=== PATIENT | female | born 1940 | race Caucasian/White ===

== ENCOUNTER 2022-04-14 18:57 | Observation (INO) | payer MEDICARE, SELFPAY ==
[2022-04-14 19:00] VITALS: BP 165/81; PULSE 67; RESP 16; TEMP 36.2; O2SAT 97
--- NOTE | 2022-04-14 19:07 | CTR_ITS ---
PROCEDURE INFORMATION: Exam: CT Head Without Contrast Exam date and time: 04/14/2022 7:20 PM Age: 81 years old Clinical indication: Weakness, extremity; Right; Additional info: Strokelike symptoms TECHNIQUE: Imaging protocol: Computed tomography of the head without contrast. Radiation optimization: All CT scans at this facility use at least one of these dose optimization techniques: automated exposure control; mA and/or kV adjustment per patient size (includes targeted exams where dose is matched to clinical indication); or iterative reconstruction. COMPARISON: CT cervical spin wo con* [id number] 04/17/2018 7:24 PM RADIATION DOSE METRICS: Total DLP (mGy-cm): 1096.78 FINDINGS: Brain: There is moderate cerebral atrophy. There is mild diffuse heterogeneity of the white matter attenuation, consistent with chronic white matter ischemic changes. Localized area of low attenuation gliosis in the left posterior periventricular white matter. Age indeterminate lacunar infarct of the right basal ganglia suspected. Negative for intracranial hemorrhage. No space-occupying intracranial mass. No mass effect on the brain. Negative for midline shift of the brain. Cerebral ventricles: No ventriculomegaly. Paranasal sinuses: Visualized sinuses are unremarkable. No fluid levels. Mastoid air cells: Visualized mastoid air cells are well aerated. Bones/joints: Unremarkable. No acute fracture. Soft tissues: Unremarkable. CT/CT head wo con* [id number] IMPRESSION: 1. Negative for intracranial hemorrhage. 2. Age indeterminate right basal ganglia lacunar infarct with no comparison imaging available.
--- NOTE | 2022-04-14 19:15 | ED_ITS ---
HPI - Neuro Symptoms/Deficit General: Chief Complaint: Neuro Symptoms/Deficit Stated Complaint: stroke like symptoms Time Seen by Provider: 04/14/22 19:15 History of Present Illness: Ms. Patel is a 81-year-old lady with history of hypertension, CAD with history of PCI, COPD with continued tobacco use who presents to the emergency department for strokelike symptoms. Onset of symptoms was sudden at rest when she was sitting watching TV. Her daughter noticed that she dropped to the cigarette out of her right hand and when she reached down to pick it up was unable to stand back up. She had associated facial droop and dysarthria with alteration in mental status. She had symptoms for 5 to 10 minutes which have now completely resolved. She reports generalized malaise however this has been chronic of late. She did have 1 episode similar approximately 5 or 6 months ago and an episode where she woke up and part of her body was paralyzed that this resolved approximately 1 year ago. She did not seek medical attention for either 1 of those events. Intensity of symptoms when present was severe. Course has improved. No other specific changes in health, exacerbating, or alleviating factors identified. Onset (ago): minute(s) Timing confirmed by: family member Location: speech, right face and right arm History of same: Yes Severity: moderate Relieving factors: time Exacerbating factors: none Context: sudden onset On Anticoagulants: No Associated symptoms: Reports no associated symptoms Review of Systems General: Reports: 10 or more systems reviewed and unremarkable except in HPI and below PFSH ED PFSH: Medical History (Updated 04/16/22 @ 00:02 by ) CAD (coronary artery disease) COPD (chronic obstructive pulmonary disease) Hypertension Surgical History (Updated 04/14/22 @ 19:44 by Harrison Castro MD) History of coronary artery stent placement Family History (Updated 04/15/22 @ 00:56 by Fredi Dewitt MD) Mother Chronic kidney disease (CKD) Father Congestive heart failure Social History (Updated 04/14/22 @ 19:44 by Harrison Castro MD) Smoking and tobacco status: current every day smoker Physical Exam Const: COMMON NORMALS: patient oriented x3 and alert GENERAL APPEARANCE: cooperative and well developed HENMT: COMMON NORMALS: normocephalic and atraumatic HEAD & SCALP: normocephalic and atraumatic THROAT: posterior oropharynx normal Eye: COMMON NORMALS: conjunctivae normal CONJUNCTIVA: Yes conjunctivae normal SCLERA: sclerae normal Neck/C-Spine: COMMON NORMALS: supple GENERAL: Yes trachea midline Resp: EFFORT & INSPECTION: Yes able to speak in complete sentences AUSCULTATION: diminished lung sounds Cardio: COMMON NORMALS: regular rate and regular rhythm RATE: regular rate RHYTHM: regular rhythm GI: COMMON NORMALS: Soft to palpation PALPATION: Yes Soft to palpation and No Tenderness to palpation present (GI) PERCUSSION: normal to percussion Extremity: GENERAL: Yes normal exam except as noted and Yes edema (1+) Neuro: COMMON NORMALS: patient oriented x3, CN's II-XII intact bilaterally, moves all extremities, no focal motor deficits and no sensory deficits noted SENSORIUM/ORIENTATION: Yes alert and No Orientation impaired Psych: COMMON NORMALS: mental status grossly normal and Normal thought process present THOUGHT PROCESS: Normal thought process present Course ED course: - Patient was seen and evaluated by me at bedside - Patient placed on cardiac monitors, IV access obtained - Initial evaluation notable for exam as above. NIHSS 0 - Labs and xrays personally interpreted by me EKG shows sinus rhythm with nonspecific ST segment abnormalities, no STEMI - Labs notable for no significant hematologic or metabolic abnormality to explain symptoms. No evidence of UTI. - Imaging notable for no acute intracranial hemorrhage or mass. Chest x-ray wit hout lobar consolidation or pneumothorax. - Upon serial reexamination after treatment the patient was similar - Based on patient history, evaluation, and testing as interpreted the most likely cause of the patient's condition is TIA with high risk features - The results of ED evaluation were discussed with the patient including plan for admission due to requirement for level of care not available if discharged to prevent significant worsening/deterioration. - Admitting service was contacted and Dr Dewitt with the hospitalist service agreed to admit the patient - Patient was admitted without further deterioration or significant events. Note: Click bubbles or prepopulated silverman in note writing are used for assistance with data collection and billing and are inherently more limited than narrative and other text portions of this note. Please use narrative for additional clinical history and defer to narrative/free test for any case of contradictory information. If information appears in only free text or click bubble it should be considered present or absent as reported. Please contact note selling underwriter for clarifications of clinical information or contradictory information. MDM is a brief summary, contradictory or erroneous seeming information should be clarified and full note should be reviewed. Vital Signs: Vital signs: Vital Signs Temperature 97.3 F L 04/15/22 14:35 Pulse Rate 62 04/15/22 14:35 Respiratory Rate 17 04/15/22 14:35 Blood Pressure 189/74 04/15/22 14:35 Pulse Oximetry 95 04/15/22 14:35 Oxygen Delivery Me thod 04/15/22 12:00 MDM - Neuro Symptoms/Deficit Medical Decision Making 81-year-old lady presenting with neurologic symptoms concerning that have resolved. No clear etiology identified on ED evaluation. Patient is not low risk and requires further inpatient evaluation. No recurrence of symptoms while in the emergency department. Admitted for further management. Medical Records I reviewed the patient's medical records. Lab Data I reviewed the patient's lab results. : 04/14/22 20:07 04/14/22 20:[address] 04/14/22 19:07 IMPRESSION: 1. Negative for intracranial hemorrhage. 2. Age indeterminate right basal ganglia lacunar infarct with no comparison imaging available. Chest X-Ray 04/14/22 19:40 IMPRESSION: No focal acute pulmonary disease. No significant changes from remote comparison. Head MRI 04/15/22 00:47 IMPRESSION: 1. 3 small foci of partially restricted diffusion RIGHT superior caudate and adjacent to the RIGHT frontal horn suspicious for acute tiny lacunar infarcts. 2. Moderate small vessel changes with mild parenchymal volume loss. 3. Small vessel changes in the ryan. 4. Small chronic lacunar infarcts involving the mccurdy radiata RIGHT greater than LEFT, RIGHT caudate, and bilateral cerebellum. 5. Partially visualized central canal stenosis in the upper cervical spine at C4-C5. Notified Dr. Krystyna TOPETE at 04/15/2022 3:05 PM. Laboratory Results WBC 10.1 10^3/uL (4.0-10.0) H 04/14/22 20:07 RBC 4.79 10^6/uL (4.1-5.3) 04/14/22 20:07 Hgb 15.2 g/dL (11.5-15.3) 04/14/22 20:07 Hct 45.3 % (37.0-47.0) 04/14/22 20:07 MCV 94.6 fl (81-99) 04/14/22 20:07 MCH 31.7 pg (28.0-34.0) 04/14/22 20:07 MCHC 33.6 g/dL (30.0-36.0) 04/14/22 20:07 RDW 13.0 % (12.1-15.1) 04/14/22 20:07 Plt Count 206 10^3/cmm (130-400) 04/14/22 20:07 MPV 11.0 fL (7.4-10.4) H 04/14/22 20:07 Neut % (Auto) 52.2 % 04/14/22 20:07 Lymph % (Auto) 37.7 % 04/14/22 20:07 [place] % (Auto) 6.3 % 04/14/22 20:07 Eos % (Auto) 2.5 % 04/14/22 20:07 Baso % (Auto) 1.0 % 04/14/22 20:07 Neut # (Auto) 5.27 10^3/uL (1.8-7.7) 04/14/22 20:07 Lymph # (Auto) 3.8 10^3/uL (0.8-4.8) 04/14/22 20:07 [place] # (Auto) 0.6 10^3/uL (0.2-0.9) 04/14/22 20:07 Eos # (Auto) 0.3 10^3/uL (0.0-0.8) 04/14/22 20:07 Baso # (Auto) 0.1 10^3/uL (0.0-0.1) 04/14/22 20:07 Nucleated RBC % (auto) 0 % 04/14/22 20:07 Nucleated RBCs # 0.0 /100WBC 04/14/22 20:07 Sodium 140 mmol/L (136-145) 04/14/22 20:07 Potassium 3.6 mmol/L (3.5-5.1) 04/14/22 20:07 Chloride 104 mmol/L (98-107) 04/14/22 20:07 Carbon Dioxide 23 mmol/L (22-29) 04/14/22 20:07 Anion Gap 16.6 (5-19) 04/14/22 20:07 BUN 18 mg/dL (8-23) 04/14/22 20:07 Creatinine 0.8 mg/dL (0.5-0.9) 04/14/22 20:07 GFR Calculation Not Reportable 04/14/22 20:07 Glucose 92 mg/dL (65-115) 04/14/22 20:07 Estimat Average Glucose 117 04/14/22 20:07 Hemoglobin A1c 5.7 % (4.0-6.0) 04/14/22 20:07 Calculated Osmolality 292 mOsm/kg (285-295) 04/14/22 20:07 Calcium 8.9 mg/dL (8.5-10.5) 04/14/22 20:07 Iron 50 ug/dL (37-145) 04/14/22 22:45 TIBC 311 mcg/dl 04/14/22 22:45 % Saturation 16.0 % (20-50) L 04/14/22 22:45 Unsat Iron Binding 261 ug/dL (112-347) 04/14/22 22:45 Total Bilirubin 0.3 mg/dL (0.15-1.2) 04/14/22 20:07 AST 13 U/L (0-32) 04/14/22 20:07 ALT 10 U/L (0-33) 04/14/22 20:07 Alkaline Phosphatase 56 IU/L (35-105) 04/14/22 20:07 Troponin T Baseline 16 ng/L (0-10) H 04/14/22 20:07 Troponin T 120 Minute 15.41 ng/L (0-10) H 04/14/22 22:45 Delta Troponin T -0.59 ABS# (0-10) L 04/14/22 22:45 Total Protein 7.2 g/dL (6.6-8.7) 04/14/22 20:07 Albumin 4.0 g/dL (3.5-5.2) 04/14/22 20:07 Globulin 3.2 g/dL (1.3-4.6) 04/14/22 20:07 Triglycerides 207 mg/dL (0-150) H 04/14/22 22:45 Cholesterol 186 mg/dL (0-200) 04/14/22 22:45 LDL Cholesterol, Calc 111 mg/dL (50-129) 04/14/22 22:45 Total VLDL Cholesterol 41 mg/dL (0-30) H 04/14/22 22:45 HDL Cholesterol 34 mg/dL (60-100) L 04/14/22 22:45 Cholesterol/HDL Ratio 5.47 mg/dL (0.0-4.40) H 04/14/22 22:45 Vitamin B12 253 pg/mL (232-1245) 04/14/22 22:45 TSH 2.61 uIU/mL (0.27-4.20) 04/14/22 20:07 Urine Color Yellow (Yellow) 04/14/22 21:35 Urine Appearance Sl hazy (CLEAR) 04/14/22 21:35 Urine pH 5 (5-7) 04/14/22 21:35 Ur Specific [place] 1.020 (1.005-1.030) 04/14/22 21:35 Urine Protein Neg (Negative) 04/14/22 21:35 Urine Glucose (UA) Norm (Normal) 04/14/22 21:35 Urine Ketones 1+ (Negative) H 04/14/22 21:35 Urine Blood Neg (Negative) 04/14/22 21:35 Urine Nitrate Negative (Negative) 04/14/22 21:35 Urine Bilirubin Neg (Negative) 04/14/22 21:35 Urine Urobilinogen 1 mg/dL (Negative) H 04/14/22 21:35 Ur Leukocyte Esterase Trace (Negative) H 04/14/22 21:35 Urine RBC 0-4 /hpf (0-2) H 04/14/22 21:35 Urine WBC 5-10 /hpf (0-5) H 04/14/22 21:35 Ur Squamous Epith Cells 15-25 /hpf (0-5) H 04/14/22 21:35 Amorphous Sediment Not Reportable 04/14/22 21:35 Urine Bacteria 4+ /hpf (NONE) H 04/14/22 21:35 Urine Mucus 1+ /hpf 04/14/22 21:35 Discharge Plan Discharge Patient Disposition: Placed in Observation Admit Provider: Fredi Dewitt Clinical Impression: Brain TIA Discharge Diet: Cardiac Discharge Activity: Resume usual activity and Increase activity as tolerated Coding Level of Care Code ED Acoustic Intelligence Specialist for Chg Fwd Exam Comprehensive
--- NOTE | 2022-04-14 19:40 | XRR_ITS ---
PROCEDURE INFORMATION: Exam: XR Chest Exam date and time: 04/14/2022 7:46 PM Age: 81 years old Clinical indication: Other: TIA TECHNIQUE: Imaging protocol: Radiologic exam of the chest. Views: 1 view. COMPARISON: CR Chest 2 views* [id number] 04/17/2018 7:06 PM FINDINGS: Lungs: Emphysematous lung changes. Reticular changes of interstitium. Right lateral lung calcified granuloma. Negative for pulmonary consolidation. Pleural spaces: Unremarkable. No pleural effusion. No pneumothorax. Heart/Mediastinum: Mild severity cardiac enlargement. Bones/joints: Unremarkable. XR/XR chest 1V portable [id number] IMPRESSION: No focal acute pulmonary disease. No significant changes from remote comparison.
--- NOTE | 2022-04-14 20:10 | ECG_ITS ---
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 Measurements Intervals [place] Rate: 61 P: 77 WV: 145 QRS: -3 QRSD: 80 T: 75 QT: 389 QTc: 392 Interpretive Statements SINUS RHYTHM NONSPECIFIC ST & T-WAVE ABNORMALITY No previous ECG available for comparison Electronically Signed On 04-15-2022 7:03:05 CDT by Kasie Saravia M.D. [id number]
[2022-04-14 20:17] LABS: Basophils # 0.1 10^3/uL (0.0-0.1); Eosinophils # 0.3 10^3/uL (0.0-0.8); Eosinophils % 2.5 %; Hematocrit 45.3 % (37.0-47.0); Hemoglobin 15.2 g/dL (11.5-15.3); Lymphocytes # 3.8 10^3/uL (0.8-4.8); Lymphocytes % 37.7 %; Mean Corpuscular HGB Conc 33.6 g/dL (30.0-36.0); Mean Corpuscular Hemoglobin 31.7 pg (28.0-34.0); Mean Corpuscular Volume 94.6 fl (81-99); Monocytes # 0.6 10^3/uL (0.2-0.9); Monocytes % 6.3 %; Neutrophils # 5.27 10^3/uL (1.8-7.7); Neutrophils % 52.2 %; Nucleated Red Blood Cells % 0 %; Platelet Count 206 10^3/cmm (130-400); Red Blood Count 4.79 10^6/uL (4.1-5.3); White Blood Count 10.1 10^3/uL (4.0-10.0)
[2022-04-14 20:40] LABS: Troponin(5th) Baseline 16 ng/L (0-10)
[2022-04-14 20:42] LABS: Alanine Aminotransferase 10 U/L (0-33); Alkaline Phosphatase 56 IU/L (35-105); Anion Gap 16.6 (5-19); Aspartate Amino Transferase 13 U/L (0-32); Blood Urea Nitrogen 18 mg/dL (8-23); Calcium 8.9 mg/dL (8.5-10.5); Carbon Dioxide 23 mmol/L (22-29); Chloride 104 mmol/L (98-107); Globulin 3.2 g/dL (1.3-4.6); Glucose 92 mg/dL (65-115); Osmolality Calculated 292 mOsm/kg (285-295); Potassium 3.6 mmol/L (3.5-5.1); Sodium 140 mmol/L (136-145); Total Bilirubin 0.3 mg/dL (0.15-1.2); Total Protein 7.2 g/dL (6.6-8.7)
[2022-04-14 21:34] LABS: Thyroid Stimulating Hormone 2.61 uIU/mL (0.27-4.20)
--- NOTE | 2022-04-14 21:40 | ECG_ITS ---
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 Measurements Intervals [place] [employer] Rate: 63 P: 59 ND: 146 QRS: 3 QRSD: 82 T: 78 QT: 358 QTc: 368 Interpretive Statements SINUS RHYTHM NONSPECIFIC ST & T-WAVE ABNORMALITY Compared to ECG 04/14/2022 20:10:34 No significant changes Electronically Signed On 04-15-2022 7:06:21 CDT by Kasie Saravia M.D. [id number]
[2022-04-14 21:56] LABS: Add Urine Microscopic? YES; Bilirubin Urine Neg (Negative); Blood Urine Neg (Negative); Glucose Urine UA Norm (Normal); Ketones Urine 1+ (Negative); Leukocyte Esterase Urine Trace (Negative); Nitrate Urine Negative (Negative); Protein Urine Neg (Negative); Urine Appearance SL Hazy (CLEAR); Urine Color Yellow (Yellow); pH Urine 5 (5-7)
[2022-04-14 21:57] LABS: Add Urine Culture? No; Bacteria Urine 4+ /hpf; Mucus Urine 1+ /hpf; RBC Urine 0-4 /hpf (0-2); Squamous Epithelial Cell Urine 15-25 /hpf (0-5); Urobilinogen Urine 1 mg/dL (Negative)
[2022-04-14 23:09] LABS: Troponin 5 2HR 15.41 ng/L (0-10)
[2022-04-14 23:15] LABS: Troponin 5 2HR Delta -0.59 ABS# (0-10)
[2022-04-14 23:20] VITALS: BP 181/81; PULSE 60; RESP 19; O2SAT 95
[2022-04-15] VITALS (10 sets, daily range): BP systolic 150–192; BP diastolic 74–97; PULSE 57–73; RESP 16–23; TEMP 36.3–36.8; O2SAT 94–95
--- NOTE | 2022-04-15 | PC.NURSE ---
Pt. is very restless and refuses to lay in the hospital bed. Family is walking hallways and I have instructed them to wait in the room with the patient or they need to wait in the lobby. The family states , that she is almost falling out of the chair . I went into the room and the patient for the third time states that she thinks she should go home. Family tells her that she needs to be admitted and that they are going to run more tests and monitor her upstairs. I have asked the patient if she would like to lay in the hospital bed for comfort while she waits on a room assignment. The patient refuses and asks when her room will be ready. I have explained that we are in the process of waiting for a room to be assigned , at which point I would call and give the other nurse a report on her and then she will be going upstairs. The patient is upset and reluctant, but agrees again to stay.
--- NOTE | 2022-04-15 00:47 | USCV_ITS ---
Yolis Patel Age: 81 Gender: F : 1940 Exam Date: 04/15/2022 06:57 Ordering Phys: Fredi Dewitt MD Technologist: Georgette Samayoa Exam Location: [facility] – [place] Indication: CVA Risk Factors: Previous Vascular Surgery: Right Brachial BP: / Left Brachial BP: / Right Left Velocity (cm/s) Spectral Plaque Velocity (cm/s) Spectral Plaque Syst/Diast Broadening Syst/Diast Broadening 83.80/ 10.80 Prox CCA 84.70 / 7.00 32.90/ 11.50 Josué Mid CCA 70.70 / 7.80 58.10/ 10.70 Distal CCA 65.30 / 10.90 Hetro 86.80/ 14.80 Prox ICA 56.20 / 9.90 59.70/ 10.40 Mid ICA 43.40 / 3.90 55.20/ 14.80 Distal ICA 61.20 / 13.40 130.60 ECA 152.30 1.04 ICA/CCA 0.72 Antegrade Vertebral Antegrade 35.70/ 7.80 cm/s 30.50/ 7.50 cm/s Tri Subclavian Tri 84.70 134.6 0 FINDINGS Comparison: none available. No significant elevation of systolic or diastolic velocities. Waveforms are mildly dampened but no intracranial abnormaity seen on recent CT head. Mild diffuse bilateral scattered calcified plaque and intimal thickening throughout the common carotid arteries and extending through the bifurcation. Antegrade vertebral arteries. CONCLUSIONS Bilateral ICA stenosis less than 50%. Mild diffuse carotid atherosclerosis. Dr. Kendal Collins DO (Electronically Signed) Final Date: 15 April 2022 09:32 S
--- NOTE | 2022-04-15 00:47 | USCV_ITS ---
Yolis Patel Age: 81 Gender: F : 1940 Exam Date: 04/15/2022 07:12 Ordering Phys: Fredi Dewitt MD Technologist: Georgette Samayoa [place] [facility] [place]: CVA BP: 150 / 74 HR: 60 Rhythm: Sinus Technical Quality: Good MEASUREMENTS (Male / Female) Normal Values 2D ECHO LV Diastolic Diameter PLAX 4.4 cm 4.2 - 5.9 / 3.9 - 5.3 cm LV Systolic Diameter PLAX 2.9 cm IVS Diastolic Thickness 1.9 cm 0.6 - 1.0 / 0.6 - 0.9 cm IVS Systolic Thickness 2.1 cm LVPW Diastolic Thickness 1.6 cm 0.6 - 1.0 / 0.6 - 0.9 cm LVPW Systolic Thickness 2.2 cm LVOT Diameter 1.9 cm LV Ejection Fraction 2D Teich 61.7 % LV Ejection Fraction MOD 2C 68.2 % LV Ejection Fraction 2C AL 70.4 % LA Diameter 3.5 cm LA Width 4.2 cm LA Height 5.0 cm RA Width 3.6 cm RA Height 4.5 cm Aorta at Sinotubular Diameter 2.2 cm IVC Diameter 1.8 cm M-MODE Aortic Annulus Diameter 3.4 cm LA Ao Ratio MM 0.9 MV E Point Septal Separation 0.5 cm DOPPLER AV Peak Velocity 147.7 cm/s LVOT Peak Velocity 103.0 cm/s AV Area Cont Eq vti 2.0 cm squared AV Area Cont Eq pk 2.1 cm squared MV Peak Velocity 104.0 cm/s MV Area PHT 2.1 cm squared Mitral E to A Ratio 1.2 MV E' Velocity 65.5 cm/s Mitral E to MV E' Ratio 17.7 Mitral E to LV E' Lateral Ratio 16.9 Mitral E to LV E' Septal Ratio 18.4 TR Peak Velocity 253.6 cm/s TR Peak Gradient 25.7 mmHg TR Mean Velocity 230.3 cm/s TR Mean Gradient 22.0 mmHg TR Velocity Time Integral 93.1 cm TV Peak E Velocity 51.0 cm/s Right Atrial Pressure 3.0 mmHg Pulmonary Artery Systolic Pressu 28.7 mmHg PV Peak Velocity 84.0 cm/s RV Acceleration Time 0.1 s RV Ejection Time 0.4 s RV AcT/ET 0.2 FINDINGS Left Ventricle Normal left ventricular size. LV systolic function is normal with EF 55 to 60%. No regional wall motion abnormalities are seen. Basal septal hypertrophy is seen Right Ventricle The right ventricle is normal in size and function. Right Atrium The right atrium is normal in size. Left Atrium Left atrium is dilated Mitral Valve Mild mitral annular calcification is seen. Mild mitral regurgitation. Aortic Valve Aortic valve is thickened. Moderate aortic regurgitation is seen. No significant aortic stenosis Tricuspid Valve Trace tricuspid regurgitation is seen. Insufficient TR jet to calculate RVSP. Pulmonic Valve Not well-visualized Pericardium Normal pericardium without effusion. Aorta Normal ascending aorta dimension. IVC CONCLUSIONS LV systolic function is normal with EF of 55 to 60%. Basal septal hypertrophy is seen. Mild mitral regurgitation. Left atrium is dilated. Moderate aortic regurgitation seen. Trace tricuspid regurgitation No comparison studies are available Mickey Monson MD (Electronically Signed) Final Date: 15 April 2022 13:14 S
--- NOTE | 2022-04-15 00:47 | MR_ITS ---
WS: [id number] MRI HEAD WITHOUT CONTRAST TECHNIQUE: Sagittal T1, T2 axial, T2 axial FLAIR, axial and coronal T1 images, axial susceptibility w eighted imaging, axial diffusion weighted images, and coronal T2 images were obtained. CLINICAL INFORMATION: cva COMPARISON: CT April 14, 2022 FINDINGS: Tiny focus of partially restricted diffusion in the RIGHT basal ganglia adjacent to the caudate measu ring 5 mm. 2 additional tiny focus of partially restricted diffusion in the RIGHT superior caudate. F indings suspicious for acute tiny lacunar infarcts. Numerous chronic lacunar infarcts in the RIGHT gr eater than LEFT mccurdy radiata. Additional tiny chronic lacunar infarcts in the RIGHT greater than LE FT caudate. A few tiny chronic lacunar infarcts in the cerebellum RIGHT greater than LEFT and RIGHT ryan. Moderat e small vessel changes. Mild parenchymal volume loss. Small vessel changes in the ryan. Normal vascul ar flow voids at the skull base. No extra axial fluid collections. Paranasal sinuses are well aerated . Mucosal thickening in the mastoid air cells. Mild central canal stenosis in the upper cervical spine at C4-C5. No hemosiderin on the susceptibly w eighted images. Normal optic chiasm and pituitary infundibulum. Mild symmetric atrophy temporal lobes and hippocampal formations. MR/MR head wo con* [id number] IMPRESSION: 1. 3 small foci of partially restricted diffusion RIGHT superior caudate and a djacent to the RIGHT frontal horn suspicious for acute tiny lacunar infarcts. 2. Moderate small vessel changes with mild parenchymal volume loss. 3. Small vessel changes in the ryan. 4. Small chronic lacunar infarcts involving the mccurdy radiata RIGHT greater t devries LEFT, RIGHT caudate, and bilateral cerebellum. 5. Partially visualized central canal stenosis in the upper cervical spine at C4-C5. Notified Dr. Krystyna TOPETE at 04/15/2022 3:05 PM.
--- NOTE | 2022-04-15 00:52 | PM.HP ---
Providers/Chief Complaint Admitting Physician: Fredi Dewitt MD Chief Complaint: stroke like symptoms History of Present Illness Yolis Patel is a 81 year old female with a past medical story of hypertension, CAD status post LAD stent, hyperlipidemia, history of valvular disease, history of CHF, history of carotid artery disease, history of COPD, active smoker, who presents to [facility] for strokelike symptoms. Patient tells me that she is only here in the hospital because her children made her come here. According to patient at roughly 5 PM, she was smoking her cigarette, when she tried to put in an ashtray went and it fell to the floor, she used her right hand to try to pick it up when her right hand felt clumsy, felt weak, she sat back in the chair and was not feeling well. According to family member she had a facial droop, side unknown, dysarthria,, generalized weakness. According to patient and family 6 months ago she had an episode of hemiparesis when she woke up which resolved spontaneously, she did not seek any medical attention. Upon examination, in the emergency room, NIH stroke scale was 0, CT head within normal limits he was asymptomatic, hospitalist team was called for admission currently she is alert oriented x3, following all commands, NIH stroke scale 0, no slurring words, no facial droop, the only thing I discern on physical exam is that she does have significant cerebellar ataxia, her Romberg test was positive, [id number] was positive, she has significant cerebellar symptoms. She tells me that she is quite unsteady on her feet, she had a significant fall 2 months ago, she uses a bertrand and the cane to steady herself when she walks in her house. No atrial fibrillation, no chest palpitations, no chest pain. Review of Systems Const: Denies: fever(s) Eyes: Denies: change in vision Card: Denies: chest pain or palpitations Resp: Denies: dyspnea GI: Denies: abdominal pain Neuro: Reports: numbness in extremities and difficulty walking; Denies: headache(s) Medications/Allergies Allergies Allergy/AdvReac Type Severity Reaction Status Date / Time No Known Allergies Allergy Verified 04/14/22 19:04 PFSH Acute PFSH: Medical History (Updated 04/15/22 @ 00:57 by Fredi Dewitt MD) CAD (coronary artery disease) COPD (chronic obstructive pulmonary disease) Hypertension Surgical History (Updated 04/14/22 @ 19:44 by Harrison Castro MD) History of coronary artery stent placement Family History (Updated 04/15/22 @ 00:56 by Fredi Dewitt MD) Mother Chronic kidney disease (CKD) Father Congestive heart failure Social History (Updated 04/14/22 @ 19:44 by Harrison Castro MD) Smoking and tobacco status: current every day smoker Vitals/I&O/Wt Last Vital Signs Temp 97.1 F L 04/14/22 19:00 Pulse 72 04/15/22 00:25 Resp 23 H 04/15/22 00:25 BP 177/97 04/15/22 00:25 Pulse Ox 95 04/15/22 00:25 O2 Del Method 04/15/22 00:06 Weight last 48 hrs Weight 72.121 kg Physical Exam Const: COMMON NORMALS: no acute distress and patient oriented x3 HENMT: COMMON NORMALS: normocephalic HEAD & SCALP: normocephalic Eye: COMMON NORMALS: Equal, round and reactive pupils present and EOMs intact bilaterally Neck/C-Spine: COMMON NORMALS: no JVD Resp: COMMON NORMALS: normal respiratory effort, No retractions, No use of accessory muscles and clear to auscultation bilaterally AUSCULTATION: clear to auscultation bilaterally Cardio: COMMON NORMALS: no JVD, regular rate, regular rhythm, S1 normal heart sound present and S2 normal heart sound present RATE: regular rate RHYTHM: regular rhythm HEART SOUNDS: S1 normal heart sound present and S2 normal heart sound present GI: COMMON NORMALS: Normal to inspection, nondistended, normoactive bowel sounds present, Soft to palpation, non-tender, No hepatosplenomegaly present, no masses and no bruits PALPATION: Yes Soft to palpation and Yes No hepatosplenomegaly present Extremity: COMMON NORMALS: capillary refill normal, no clubbing, cyanosis or edema, no calf tenderness and no pedal edema Neuro: COMMON NORMALS: patient oriented x3, CN's II-XII intact bilaterally, moves all extremities and no focal motor deficits OTHER: Positive cerebellar signs Psych: COMMON NORMALS: mental status grossly normal Data : 04/14/22 20:07 04/14/22 20:07 A&P Assessment and plan (1) Brain TIA: Status: Acute (2) CAD (coronary artery disease): Status: Acute (3) COPD (chronic obstructive pulmonary disease): Status: Acute (4) Hypertension: Status: Acute (5) UTI (urinary tract infection): Status: Acute Plan TIA -NIH stroke scale 0 -On examination she does have cerebellar signs, but she has had them for some period of time -Aspirin, statin, Plavix -NIH stroke scales, neurochecks, aspiration precautions -PT OT -No swallowing issues, no dysphagia, no productive or receptive aphasia -Cardiac echo, history of carotid artery disease carotid artery ultrasound -Does have cerebellar signs we will order an MRI of the brain -CT of the head did show a right basal ganglia lacunar infarct Hypertension -Metoprolol 25 twice daily UTI, Rocephin CAD, aspirin, cardiac echo, serial EKGs serial troponins, telemetry monitoring COPD, not in exacerbation, needs to quit smoking Full code Lovenox for DVT prophylaxis Attestations Medical Necessity Statement*: Patient requires hospitalization, outpatient with observation, for TIA, hypertension Coding Level of Care Code Acute Sole Layer Hand for [facility] Fwd Diagnoses Brain TIA G45.9 CAD (coronary artery disease) I25.10 COPD (chronic obstructive pulmonary disease) J44.9 Hypertension I10 UTI (urinary tract infection) N39.0
[2022-04-15] MEDS: cefTRIAXone 1,000 MG in sodium chloride 0.9% (plus) 50 ML 100 MG IV (01:23)
[2022-04-15] MEDS: atorvastatin 40 mg Tablet PO (01:28)
[2022-04-15] MEDS: metoprolol tartrate 25 mg Tablet PO ×2 (01:28→11:13)
[2022-04-15] MEDS: aspirin 325 mg EC Tablet PO (01:28)
[2022-04-15] MEDS: enoxaparin 40 mg/0.4 mL Syringe SUBCUT (01:29)
--- NOTE | 2022-04-15 01:40 | ECG_ITS ---
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 Measurements Intervals [place] Rate: 70 P: 51 [place]: 170 QRS: 17 QRSD: 81 T: 29 QT: 389 QTc: 421 Interpretive Statements SINUS RHYTHM NONSPECIFIC ST & T-WAVE ABNORMALITY Compared to ECG 04/14/2022 21:44:30 No significant changes Electronically Signed On 04-15-2022 18:31:58 CDT by Marietta Lyons M.D. [id number]
[2022-04-15 02:34] LABS: Troponin 5 6HR 11.95 ng/L (0-10)
[2022-04-15 02:37] LABS: Troponin 5 6HR Delta -4.05 ng/L (0-12)
[2022-04-15 02:43] LABS: NT Pro B Type Natriuretic Pept 789 pg/mL (0-450); Thyroid Stimulating Hormone 1.92 uIU/mL (0.27-4.20)
[2022-04-15] MEDS: famotidine 20 mg Tablet PO (08:17)
[2022-04-15] MEDS: clopidogrel 75 mg Tablet PO (08:17)
--- NOTE | 2022-04-15 10:36 | PC.NURSE ---
called lab to add on urine drug screen to urine in lab.
[2022-04-15 10:48] LABS: Amphetamines Screen Urine Negative (Negative); Barbiturates Screen Urine Negative (Negative); Benzodiazepines Screen Urine Negative (Negative); Cocaine Screen Urine Negative (Negative); Opiate Screen Urine Positive (Negative); PCP Screen Urine Negative (Negative); THC Screen Urine Negative (Negative)
[2022-04-15 11:56] LABS: Estmated Average Glucose 117; Hemoglobin A1C 5.7 % (4.0-6.0)
[2022-04-15 12:17] LABS: Chol HDL Ratio 5.47 mg/dL (0.0-4.40); Cholesterol 186 mg/dL (0-200); HDL Cholesterol 34 mg/dL (60-100); Iron 50 ug/dL (37-145); LDL Cholesterol Calculated 111 mg/dL (50-129); Total Iron Binding Capacity 311 mcg/dl; Triglycerides 207 mg/dL (0-150); Unsaturated Iron Binding 261 ug/dL (112-347); VLDL Cholestrol Calculation 41 mg/dL (0-30)
--- NOTE | 2022-04-15 12:19 | P.DS_ITS ---
Discharge Providers Date of Admission: 04/15/22 00:36 Date of Discharge: April 15, 2022 Attending Provider at Admission: Fredi Dewitt MD Attending Provider at Discharge: Prashant Greenwood MD Diagnoses at Discharge Discharge Diagnosis (1) Brain TIA: Status: Acute (2) CAD (coronary artery disease): Status: Acute (3) COPD (chronic obstructive pulmonary disease): Status: Acute (4) Hypertension: Status: Acute (5) UTI (urinary tract infection): Status: Acute Reason for Visit Reason for Visit: stroke like symptoms Brief History: History as per HPI: Yolis Patel is a 81 year old female with a past medical story of hypertension, CAD status post LAD stent, hyperlipidemia, history of valvular disease, history of CHF, history of carotid artery disease, history of COPD, active smoker, who presents to [facility] for strokelike symptoms.? Patient tells me that she is only here in the hospital because her children made her come here.? According to patient at roughly 5 PM, she was smoking her cigarette, when she tried to put in an ashtray went and it fell to the floor, she used her right hand to try to pick it up when her right hand felt clumsy, felt weak, she sat back in the chair and was not feeling well.? According to family member she had a facial droop, side unknown, dysarthria,, generalized weakness.? According to patient and family 6 months ago she had an episode of hemiparesis when she woke up which resolved spontaneously, she did not seek any medical attention.? Upon examination, in the emergency room, NIH stroke scale was 0, CT head within normal limits he was asymptomatic, hospitalist team was called for admission currently she is alert oriented x3, following all commands, NIH stroke scale 0, no slurring words, no facial droop, the only thing I discern on physical exam is that she does have significant cerebellar ataxia, her Romberg test was positive, [id number] was positive, she has significant cerebellar symptoms.? She tells me that she is quite unsteady on her feet, she had a significant fall 2 months ago, she uses a bertrand and the cane to steady herself when she walks in her house.? No atrial fibrillation, no chest palpitations, no chest pain. Hospital Course Hospital Course Patient was admitted to the hospital further evaluation and management. She did not have any further deficits during hospitalization. She remained NIH scale of 0 during the whole hospitalization. She worked well with physical therapy. For possible stroke work-up she underwent carotid Dopplers, MRI brain, echocardiogram which were resulted as below. He was found to have elevated blood pressures for which her home antihypertensives were adjusted. Patient continued to work well with physical therapy without any deficit. There is a concern for UTI on admission which was ruled out by negative nitrite on UA and no dysuria. She has been discharged hemodynamically stable condition advised to follow-up with neurology within 2 weeks, lifestyle modification along with statins for dyslipidemia. Lisinopril dose has been increased for elevated blood pressures. She is advised to take her blood pressure daily and maintain a blood pressure diary and follow-up with her primary care provider within next 1 week for further adjustment of antihypertensive if needed. Physical Exam Const: COMMON NORMALS: no acute distress and patient oriented x3 HENMT: COMMON NORMALS: normocephalic HEAD & SCALP: normocephalic Eye: COMMON NORMALS: Equal, round and reactive pupils present and EOMs intact bilaterally PUPIL: Yes Equal, round and reactive pupils present Neck/C-Spine: COMMON NORMALS: no JVD Resp: COMMON NORMALS: normal respiratory effort, No retractions, No use of accessory muscles and clear to auscultation bilaterally AUSCULTATION: clear to auscultation bilaterally Cardio: COMMON NORMALS: no JVD, regular rate, regular rhythm, S1 normal heart sound present and S2 normal heart sound present RATE: regular rate RHYTHM: regular rhythm HEART SOUNDS: S1 normal heart sound present and S2 normal heart sound present GI: COMMON NORMALS: Normal to inspection, nondistended, normoactive bowel sounds present, Soft to palpation, non-tender, No hepatosplenomegaly present, no masses and no bruits PALPATION: Yes Soft to palpation and Yes No hepa tosplenomegaly present Extremity: COMMON NORMALS: capillary refill normal, no clubbing, cyanosis or edema, no calf tenderness and no pedal edema Neuro: COMMON NORMALS: patient oriented x3, CN's II-XII intact bilaterally, moves all extremities and no focal motor deficits OTHER: Positive cerebellar signs Psych: COMMON NORMALS: mental status grossly normal Discharge Data Studies Completed and Pending Completed Studies During Hospitalization Category Date Time Status CT head wo con* [id number] Stat Cat Scan 08/11/22 19:07 Completed XR chest 1V portable [id number] Stat Exams 04/14/22 19:40 Completed CV carotid duplex BI* [id number] Routine Ultrasound 04/15/22 00:47 Completed Pending at discharge Category Date Time Status B12 [Vitamin B12] Routine Lab 04/15/22 01:52 Results Complete Blood Count w/Auto AM LABS Lab 04/16/22 04:00 Ordered Complete Blood Count w/Auto AM LABS Lab 04/17/22 04:00 Ordered Complete Blood Count w/Auto AM LABS Lab 04/18/22 04:00 Ordered Comprehensive Metabolic Panel AM LABS Lab 04/16/22 04:00 Ordered Comprehensive Metabolic Panel AM LABS Lab 04/17/22 04:00 Ordered Comprehensive Metabolic Panel AM LABS Lab 04/18/22 04:00 Ordered Lipid Profile w/VLDL Routine Lab 04/15/22 01:52 Results Magnesium AM LABS Lab 04/16/22 04:00 Ordered Magnesium AM LABS Lab 04/17/22 04:00 Ordered Magnesium AM LABS Lab 04/18/22 04:00 Ordered Phosphorus AM LABS Lab 04/16/22 04:00 Ordered Phosphorus AM LABS Lab 04/17/22 04:00 Ordered Phosphorus AM LABS Lab 04/18/22 04:00 Ordered TIBC [Total Iron Binding Capacity] Routine Lab 04/15/22 01:52 Results MR head wo con* [id number] Routine MRI 04/15/22 00:47 Ordered CV. echo complete* [id number] Routine Ultrasound 04/15/22 00:47 Taken Radiology Impressions Head CT 04/14/22 19:07 IMPRESSION: 1. Negative for intracranial hemorrhage. 2. Age indeterminate right basal ganglia lacunar infarct with no comparison imaging available. Chest X-Ray 04/14/22 19:40 IMPRESSION: No focal acute pulmonary disease. No significant changes from remote comparison. Carotid Doppler: FINDINGS ?Comparison: none available. ?No significant elevation of systolic or diastolic velocities.? ?Waveforms are mildly dampened but no intracranial abnormaity?seen on recent CT head. ?Mild diffuse bilateral scattered calcified plaque and intimal?thickening throughout the common carotid arteries and extending ?through the bifurcation. Antegrade vertebral arteries. ?CONCLUSIONS ?Bilateral ICA stenosis less than 50%. ?Mild diffuse carotid atherosclerosis. ?Dr. Kendal Collins DO ?(Electronically Signed) ?Final Date:? ? ? 15 April 2022 ? 09:32 Laboratory Results WBC 10.1 10^3/uL (4.0-10.0) H 04/14/22 20:07 RBC 4.79 10^6/uL (4.1-5.3) 04/14/22 20:07 Hgb 15.2 g/dL (11.5-15.3) 04/14/22 20:07 Hct 45.3 % (37.0-47.0) 04/14/22 20:07 MCV 94.6 fl (81-99) 04/14/22 20:07 MCH 31.7 pg (28.0-34.0) 04/14/22 20:07 MCHC 33.6 g/dL (30.0-36.0) 04/14/22 20:07 RDW 13.0 % (12.1-15.1) 04/14/22 20:07 Plt Count 206 10^3/cmm (130-400) 04/14/22 20:07 MPV 11.0 fL (7.4-10.4) H 04/14/22 20:07 Neut % (Auto) 52.2 % 04/14/22 20:07 Lymph % (Auto) 37.7 % 04/14/22 20:07 [place] % (Auto) 6.3 % 04/14/22 20:07 Eos % (Auto) 2.5 % 04/14/22 20:07 Baso % (Auto) 1.0 % 04/14/22 20:07 Neut # (Auto) 5.27 10^3/uL (1.8-7.7) 04/14/22 20:07 Lymph # (Auto) 3.8 10^3/uL (0.8-4.8) 04/14/22 20:07 [place] # (Auto) 0.6 10^3/uL (0.2-0.9) 04/14/22 20:07 Eos # (Auto) 0.3 10^3/uL (0.0-0.8) 04/14/22 20:07 Baso # (Auto) 0.1 10^3/uL (0.0-0.1) 04/14/22 20:07 Nucleated RBC % (auto) 0 % 04/14/22 20:07 Nucleated RBCs # 0.0 /100WBC 04/14/22 20:07 Sodium 140 mmol/L (136-145) 04/14/22 20:07 Potassium 3.6 mmol/L (3.5-5.1) 04/14/22 20:07 Chloride 104 mmol/L (98-107) 04/14/22 20:07 Carbon Dioxide 23 mmol/L (22-29) 04/14/22 20:07 Anion Gap 16.6 (5-19) 04/14/22 20:07 BUN 18 mg/dL (8-23) 04/14/22 20:07 Creatinine 0.8 mg/dL (0.5-0.9) 04/14/22 20:07 GFR Calculation Not Reportable 04/14/22 20:07 Glucose 92 mg/dL (65-115) 04/14/22 20:07 Estimat Average Glucose 117 04/14/22 20:07 Hemoglobin A1c 5.7 % (4.0-6.0) 04/14/22 20:07 Calculated Osmolality 292 mOsm/kg (285-295) 04/14/22 20:07 Calcium 8.9 mg/dL (8.5-10.5) 04/14/22 20:07 Iron 50 ug/dL (37-145) 04/14/22 22:45 TIBC 311 mcg/dl 04/14/22 22:45 Unsat Iron Binding 261 ug/dL (112-347) 04/14/22 22:45 Total Bilirubin 0.3 mg/dL (0.15-1.2) 04/14/22 20:07 AST 13 U/L (0-32) 04/14/22 20:07 ALT 10 U/L (0-33) 04/14/22 20:07 Alkaline Phosphatase 56 IU/L (35-105) 04/14/22 20:07 Troponin T Baseline 16 ng/L (0-10) H 04/14/22 20:07 Troponin T 120 Minute 15.41 ng/L (0-10) H 04/14/22 22:45 Delta Troponin T -0.59 ABS# (0-10) L 04/14/22 22:45 Troponin T Hi Sens 6Hr 11.95 ng/L (0-10) H 04/15/22 01:52 Troponin T Hi Sens 6Hr Delta -4.05 ng/L (0-12) L 04/15/22 01:52 NT-Pro-B Natriuret Pep 789 pg/mL (0-450) H 04/15/22 01:52 Total Protein 7.2 g/dL (6.6-8.7) 04/14/22 20:07 Albumin 4.0 g/dL (3.5-5.2) 04/14/22 20:07 Globulin 3.2 g/dL (1.3-4.6) 04/14/22 20:07 Cholesterol 186 mg/dL (0-200) 04/14/22 22:45 LDL Cholesterol, Calc 111 mg/dL (50-129) 04/14/22 22:45 Folate Cancelled 04/15/22 11:00 TSH 1.92 uIU/mL (0.27-4.20) 04/15/22 01:52 TSH Cancelled 04/15/22 01:52 Urine Color Yellow (Yellow) 04/14/22 21:35 Urine Appearance Sl hazy (CLEAR) 04/14/22 21:35 Urine pH 5 (5-7) 04/14/22 21:35 Ur Specific [place] 1.020 (1.005-1.030) 04/14/22 21:35 Urine Protein Neg (Negative) 04/14/22 21:35 Urine Glucose (UA) Norm (Normal) 04/14/22 21:35 Urine Ketones 1+ (Negative) H 04/14/22 21:35 Urine Blood Neg (Negative) 04/14/22 21:35 Urine Nitrate Negative (Negative) 04/14/22 21:35 Urine Bilirubin Neg (Negative) 04/14/22 21:35 Urine Urobilinogen 1 mg/dL (Negative) H 04/14/22 21:35 Ur Leukocyte Esterase Trace (Negative) H 04/14/22 21:35 Urine RBC 0-4 /hpf (0-2) H 04/14/22 21:35 Urine WBC 5-10 /hpf (0-5) H 04/14/22 21:35 Ur Squamous Epith Cells 15-25 /hpf (0-5) H 04/14/22 21:35 Amorphous Sediment Not Reportable 04/14/22 21:35 Urine Bacteria 4+ /hpf (NONE) H 04/14/22 21:35 Urine Mucus 1+ /hpf 04/14/22 21:35 Urine Opiates Screen Positive ng/mL (Negative) H 04/15/22 10:37 Ur Barbiturates Screen Negative ng/mL (Negative) 04/15/22 10:37 Ur Phencyclidine Scrn Negative ng/mL (Negative) 04/15/22 10:37 Ur Amphetamines Screen Negative ng/mL (Negative) 04/15/22 10:37 U Benzodiazepines Scrn Negative ng/mL (Negative) 04/15/22 10:37 Urine Cocaine Screen Negative ng/mL (Negative) 04/15/22 10:37 U Marijuana (THC) Screen Negative ng/mL (Negative) 04/15/22 10:37 Vitals Last Vital Signs Temp 98.0 F 04/15/22 08:00 Pulse 73 04/15/22 08:00 Resp 16 04/15/22 08:00 BP 165/85 04/15/22 08:00 Pulse Ox 95 04/15/22 08:00 O2 Del Method 04/15/22 08:00 Discharge Plan Discharge Patient Disposition: Home Condition: Stable Prescriptions: New aspirin 81 mg Tablet,Delayed Release (Dr/Ec) 81 mg PO DAILY Qty: 30 0RF atorvastatin 40 mg Tablet 40 mg PO BEDTIME Qty: 30 0RF Continued acetaminophen-codeine 300-30 mg tablet 1 tab PO Q6H PRN (Reason: Pain) meloxicam 7.5 mg tablet 7.5 mg PO DAILY metoprolol tartrate 25 mg tablet 25 mg PO BID duloxetine 30 mg capsule,delayed release(DR/EC) 30 mg PO QAM Vitamin D3 25 mcg (1,000 unit) Tablet 25 mcg PO QAM Changed lisinopril 10 mg tablet 20 mg PO QAM Qty: 30 0RF Discontinued aspirin 325 mg Tablet 325 mg PO Q6H PRN (Reason: Pain) Discharge Orders: Discharge Order (Routine); Ordered 04/15/22 Ordered By: Prashant Greenwood Referrals: Debora Gross MD [Physician] - 2 weeks Discharge Diet: Cardiac Discharge Activity: Resume usual activity and Increase activity as tolerated Patient Instructions: Opioid Safety Activity Restrictions/Additional Instructions: Please check your blood pressures daily at home and maintain a blood pressure diary for further adjustment of antihypertensives. Home dose of lisinopril has been increased to 20 mg daily. Take aspirin 81 mg daily. Take atorvastatin which is the cholesterol pill 40 mg daily. Please follow-up with your primary care provider within next 1 week, neurologist/Dr. Gross within next 2 weeks. Discharge Attestations Time Spent in Discharge Care*: greater than 30 min Specific Discharge Activities: educating patient, educating and/or supporting family/caregiver, discussing with community case manager/social workers/dc planners, documenting/other paperwork and evaluating patient/reviewing data Status at Discharge: Cognitive status at discharge: cognitively intact , Behavioral status at discharge: cooperative , Functional status at discharge: independent ambulation , Overall status at discharge: patient is back to baseline Quality Metrics Clinical Quality Measures [ No reported AMI, CVA or VTE this stay] Coding Level of Care Code Acute Chg FW DC note Diagnoses Brain TIA G45.9 CAD (coronary artery disease) I25.10 COPD (chronic obstructive pulmonary disease) J44.9 Hypertension I10 UTI (urinary tract infection) N39.0
[2022-04-15 12:33] LABS: Vitamin B12 253 pg/mL (232-1245)
--- NOTE | 2022-04-15 16:39 | PC.NURSE ---
pt discharged in stable condition to daughter, pt and daughter are picking up walker from home, pt verbalizes all discharge instructions as well as daughter, denies further questions at this time.
== END 2022-04-15 16:30 | disposition home or self-care (01) ==
LOC: ER 23:29 → MEDSURG 04-15 00:32
PROVIDERS: Admitting Provider Family Medicine; Emergency Provider Emergency Medicine; Visit Provider Student in an Organized Health Care Education/Training Program
DX: G45.9 Transient cerebral ischemic attack, unspecified (principal); R29.700 NIHSS score 0; I25.10 Atherosclerotic heart disease of native coronary artery without angina pectoris; J44.9 Chronic obstructive pulmonary disease, unspecified; I10 Essential (primary) hypertension; N39.0 Urinary tract infection, site not specified; Z95.5 Presence of coronary angioplasty implant and graft; E78.5 Hyperlipidemia, unspecified; I50.9 Heart failure, unspecified; F17.210 Nicotine dependence, cigarettes, uncomplicated
CPT/HCPCS: 36415; 70450; 70551; 71045; 80053; 80061; 80306; 81001; 82607; 83036; 83540; 83550; 83880; 84443; 84484; 85025; 93005; 93306; 93880; 96365; 96372; 97161; 97165; 97530; 99285; G0378; J0696; J1650

== ENCOUNTER 2023-06-22 13:48 | Observation (INO) | payer MEDICARE, SELFPAY ==
[2023-06-22 13:54] VITALS: BP 244/80; PULSE 66; RESP 16; TEMP 36.6; O2SAT 97; BMI 32.3
--- NOTE | 2023-06-22 13:57 | ECG_ITS ---
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 Measurements Intervals [place] Rate: 59 P: 53 ME: 158 QRS: 3 QRSD: 86 T: 56 QT: 380 QTc: 379 Interpretive Statements SINUS BRADYCARDIA WITH OCCASIONAL SUPRAVENTRICULAR PREMATURE COMPLEXES NONSPECIFIC ST & T-WAVE ABNORMALITY Compared to ECG 04/15/2022 02:42:18 Sinus rhythm no longer present T-wave abnormality still present Electronically Signed On 06-23-2023 1:06:46 CDT by Marietta Lyons M.D. [id number]
[2023-06-22 14:11] LABS: Basophils # 0.1 10^3/uL (0.0-0.1); Basophils % 0.9 %; Eosinophils # 0.2 10^3/uL (0.0-0.8); Eosinophils % 2.5 %; Hematocrit 48.8 % (36-47); Lymphocytes # 2.9 10^3/uL (0.8-4.8); Lymphocytes % 34.6 %; Mean Corpuscular HGB Conc 33.2 g/dL (30-55); Mean Corpuscular Hemoglobin 32.8 pg (27-33); Mean Corpuscular Volume 98.8 fl (85-98); Mean Platelet Volume 10.7 fL (7.4-10.4); Monocytes # 0.6 10^3/uL (0.2-0.9); Monocytes % 7.3 %; Neutrophils % 54.3 %; Nucleated Red Blood Cells % 0 %; Platelet Count 186 10^3/cmm (157-399); Red Blood Count 4.94 10^6/uL (3.85-5.65); Red Cell Distribution Width 13.4 % (12.1-15.1); White Blood Count 8.47 10^3/uL (3.29-11.43)
--- NOTE | 2023-06-22 14:25 | ED_ITS ---
HPI - Headache General: Chief Complaint: Headache Stated Complaint: hypertension Time Seen by Provider: 06/22/23 13:49 Source: patient Mode of arrival: ambulatory History of Present Illness: 82-year-old female presents emergency with markedly elevated blood pressure. She says she has a frontal headache said for the last several hours she woke up with markedly elevated blood pressure she monitors her blood pressure at home she says it is chronically high but usually not over 200. On arrival here initial blood pressure was 250 systolic she has no difficulty with speech vision or swallowing no focal neurologic deficits denies chest pain MD elicited complaint: headache Onset (ago): hour(s) Onset description: gradually Location: frontal Quality & Timing: throbbing Exacerbating factors: none Relieving factors: nothing Associated symptoms: Deny chest pain, confusion, cough, diaphoresis, eye pain, eye redness, fever(s), lightheadedness, loss of vision, malaise, nausea, neck stiffness, numbness, paresthesias, photophobia, pre-syncope, rash, seizures, short of breath, sound sensitivity, syncope, vomiting or weakness Treatments prior to arrival: none Review of Systems Const: Denies: fever(s), chills, malaise or diaphoresis Card: Denies: chest pain, lightheadedness, syncope or pre-syncope Resp: Denies: dyspnea GI: Denies: abdominal pain, nausea or vomiting : Denies: dysuria, urinary frequency or urinary urgency Musc: Denies: neck pain or back pain Skin/Breast: Denies: rash Neuro: Reports: headache(s); Denies: confusion PFSH ED PFSH: Medical History Brain TIA CAD (coronary artery disease) COPD (chronic obstructive pulmonary disease) Hypertension Surgical History History of coronary artery stent placement Family History Mother Chronic kidney disease (CKD) Father Congestive heart failure Social History Smoking and tobacco/nicotine status: current every day tobacco/nicotine user Physical Exam Const: COMMON NORMALS: no acute distress GENERAL APPEARANCE: cooperative and comfortable ORIENTATION/CONSCIOUSNESS: Yes awake, Yes oriented to person, Yes oriented to place and Yes oriented to time HENMT: COMMON NORMALS: normocephalic, atraumatic and hearing grossly normal bilaterally HEAD & SCALP: normocephalic and atraumatic Eye: DIRECT OPHTHALMOSCOPY: No photophobia Resp: COMMON NORMALS: normal respiratory effort, No retractions, No use of accessory muscles and clear to auscultation bilaterally AUSCULTATION: clear to auscultation bilaterally Cardio: COMMON NORMALS: regular rate, regular rhythm and No murmurs present ( Cardio) RATE: regular rate RHYTHM: regular rhythm GI: COMMON NORMALS: Soft to palpation and No hepatosplenomegaly present AUSCULTATION: Yes normoactive bowel sounds PALPATION: Yes Soft to palpation, No Tenderness to palpation present (GI), No Guarding due to palpation present (GI) and Yes No hepatosplenomegaly present Extremity: COMMON NORMALS: normal to inspection, capillary refill normal, no clubbing, cyanosis or edema, no calf tenderness and no pedal edema Neuro: SENSORIUM/ORIENTATION: Yes oriented to person, Yes oriented to place and Yes oriented to time Skin: COMMON NORMALS: no rashes or lesions noted GENERAL SKIN EXAM: no rashes or lesions noted Course Vital Signs: Vital signs: Vital Signs Temperature 98.0 F 06/23/23 04:00 Pulse Rate 67 06/23/23 05:24 Respiratory Rate 24 H 06/23/23 04:00 Blood Pressure 179/66 06/23/23 04:00 Pulse Oximetry 92 06/23/23 04:00 Oxygen Delivery Me thod Room Air 06/23/23 04:00 MDM - Headache Medical Decision Making Patient presented with accelerated hypertension. She responded well to medications her blood pressure was still elevated but in a much manageable range of 1 6170s systolic. We attempted to have the patient ambulate she was unable to do so without the assistance of to even from the exam gurney to the door. She has no focal neurologic deficits and on repeat exam there is still no evidence of stroke CT of the head was negative. Discussed with patient at this point I do not think she is safe to go home. She did have a bit of a headache when her blood pressure was first decreased that is improved but still slightly present. Will place patient on observation discussed with hospitalist will transfer and Medical Records I reviewed the patient's medical records. Lab Data I reviewed the patient's lab results. 06/23/23 00:54 06/23/23 00:54 Laboratory Results WBC 8.47 10^3/uL (3.29-11.43) 06/22/23 14:00 RBC 4.94 10^6/uL (3.85-5.65) 06/22/23 14:00 Hgb 16.20 g/dL (11.27-16.99) 06/22/23 14:00 Hct 48.8 % (36-47) H 06/22/23 14:00 MCV 98.8 fl (85-98) H 06/22/23 14:00 MCH 32.8 pg (27-33) 06/22/23 14:00 MCHC 33.2 g/dL (30-55) 06/22/23 14:00 RDW 13.4 % (12.1-15.1) 06/22/23 14:00 Plt Count 186 10^3/cmm (157-399) 06/22/23 14:00 MPV 10.7 fL (7.4-10.4) H 06/22/23 14:00 Neut % (Auto) 54.3 % 06/22/23 14:00 Lymph % (Auto) 34.6 % 06/22/23 14:00 Ponce % (Auto) 7.3 % 06/22/23 14:00 Eos % (Auto) 2.5 % 06/22/23 14:00 Baso % (Auto) 0.9 % 06/22/23 14:00 Neut # (Auto) 4.60 10^3/uL (1.8-7.7) 06/22/23 14:00 Lymph # (Auto) 2.9 10^3/uL (0.8-4.8) 06/22/23 14:00 Ponce # (Auto) 0.6 10^3/uL (0.2-0.9) 06/22/23 14:00 Eos # (Auto) 0.2 10^3/uL (0.0-0.8) 06/22/23 14:00 Baso # (Auto) 0.1 10^3/uL (0.0-0.1) 06/22/23 14:00 Nucleated RBC % (auto) 0 % 06/22/23 14:00 Nucleated RBCs # 0.0 /100WBC 06/22/23 14:00 Sodium 139 mmol/L (136-145) 06/22/23 14:00 Potassium 4.2 mmol/L (3.5-5.1) 06/22/23 14:00 Chloride 102 mmol/L (98-107) 06/22/23 14:00 Carbon Dioxide 27 mmol/L (22-29) 06/22/23 14:00 Anion Gap 14.2 (5-19) 06/22/23 14:00 BUN 14 mg/dL (8-23) 06/22/23 14:00 Creatinine 1.0 mg/dL (0.5-0.9) H 06/22/23 14:00 GFR Calculation Not Reportable 06/22/23 14:00 Glucose 81 mg/dL (65-115) 06/22/23 14:00 Calculated Osmolality 288 mOsm/kg (285-295) 06/22/23 14:00 Calcium 9.7 mg/dL (8.5-10.5) 06/22/23 14:00 All radiology interpretation(s) finalized by discharge Discharge Plan Discharge Patient Disposition: Placed in Observation Admit Provider: Prashant Greenwood Clinical Impression: Hypertensive urgency, CAD (coronary artery disease), History of coronary artery stent placement, Generalized weakness Condition: Stable Coding 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
[2023-06-22 14:26] LABS: Anion Gap 14.2 (5-19); Blood Urea Nitrogen 14 mg/dL (8-23); Calcium 9.7 mg/dL (8.5-10.5); Carbon Dioxide 27 mmol/L (22-29); Chloride 102 mmol/L (98-107); Glucose 81 mg/dL (65-115); Osmolality Calculated 288 mOsm/kg (285-295); Potassium 4.2 mmol/L (3.5-5.1); Sodium 139 mmol/L (136-145)
[2023-06-22] MEDS: amlodipine 10 mg Tablet PO (14:44)
[2023-06-22] MEDS: hyDRALAzine 20 mg/mL INJ 1 mL IVP (14:44)
[2023-06-22 15:14] VITALS: BP 161/73; PULSE 80; RESP 16; O2SAT 96
[2023-06-22] MEDS: acetaminophen 500 mg Tablet 1000 MG PO (15:32)
--- NOTE | 2023-06-22 15:40 | CT_ITS ---
WS: [id number] CT HEAD TECHNIQUE: Noncontrast CT of the head obtained from the skullbase to the vertex. CLINICAL INFORMATION: accelerated HTN - dizziness COMPARISON: CT 04/14/2022 and MRI 04/15/2022 DLP: 982.[address] scans at [facility] use at least one of these dose optimization techniques: automated e xposure control; mA and/or kV adjustment per patient size (includes targeted exams where dose is matc hed to clinical indication); or iterative reconstruction. FINDINGS: No evidence of intracranial hemorrhage or mass effect. Ventricular system and basal cisterns are rich nt. Moderate to advanced small vessel changes with moderate parenchymal volume loss. No extra-axial f luid collections. Chronic lacunar infarcts in the RIGHT greater than LEFT basal ganglia, bilateral ca udate, RIGHT thalamus, and RIGHT cerebellum. Mild sphenoid sinusitis. Mucosal thickening in the ethmoid air cells. Intracranial vascular calcifica tion. IMPRESSION: 1. No evidence of intracranial hemorrhage or mass effect. 2. Moderate to advanced small vessel changes with moderate parenchymal volume loss. 3. Intracranial vascular calcification. 4. Chronic lacunar infarcts in the RIGHT greater than LEFT basal ganglia. 5. No acute intracranial findings.
--- NOTE | 2023-06-22 17:54 | P.HP_ITS ---
Providers/Chief Complaint Admitting Physician: Prashant Greenwood MD Primary Care Provider: SHAE Brennan Chief Complaint: hypertension History of Present Illness Yolis Patel is a 82 year old female with past medical history of TIA, CAD, Hypertension presented to the ER because of high blood pressure. Seen with daughter at bedside. Patient was not removed to talk much today because she was bothered by cold room and was hungry. Even after multiple tries patient was not able to talk and discussed with her about her health. As per her daughter she has been dealing with fluctuating blood pressures for last 3 weeks for which her home medications are being adjusted by her primary care provider. Today when she checked her blood pressure at home and was found to be more than 240 so she presented to the ER. In the ER she was given Vasotec, IV hydralazine and 10 of amlodipine after which her blood pressure dropped from 245 systolic to 160 systolic after which patient became significantly weak, diaphoretic and dizzy hence hospitalist service was consulted. Currently patient was seen going back from bedside commode to bed, she was steady on her feet but required help in getting in bed, feeling cold, awake and alert, slightly angry with blood pressure of 170 systolic and heart rate of 95 bpm. Review of Systems General: Reports: 10 or more systems reviewed and unremarkable except in HPI and below Const: Denies: fever(s), chills, body aches, change in appetite, change in weight, malaise, night sweats, diaphoresis, change in sleep pattern, daytime sleepiness or snoring Eyes: Denies: change in vision, blurry vision, photophobia, eye discomfort or eye discharge ENMT: Denies: throat pain, enlarged tonsils, hoarseness, mouth pain, oral sores, dry mouth, tinnitus, nasal congestion or post nasal drip Card: Denies: chest pain, palpitations, irregular heart rhythm, edema, swelling of feet/ankles, lightheadedness, syncope, pre-syncope, dyspnea on exertion, orthopnea, leg pain with exertion or acrocyanosis Resp: Denies: dyspnea, productive cough, non-productive cough, wheezing, stridor, pain on inspiration, change in phlegm color, hemoptysis or chest congestion GI: Denies: abdominal pain, nausea, vomiting, hematemesis, coffee ground emesis, dysphagia, heartburn, diarrhea, constipation, bloating, GI cramping, change in bowel habits, pain on defecation, hematochezia or melena : Denies: flank pain, dysuria, urinary frequency, urinary urgency, urinary hesitancy, nocturia or hematuria Musc: Denies: neck pain, back pain, extremity pain, joint pain, joint swelling, joint redness, joint stiffness or limited range of motion Neuro: Denies: headache(s), numbness in extremities, weakness in extremities, sensory changes, lack of coordination, difficulty walking, frequent falls, dizziness, vertigo, confusion, Slurred speech present, difficulty communicating thoughts or seizure-like activity Psych: Denies: anxiety, depression, mood swings, panic attacks, hopelessness or irritability Endo: Denies: polyuria, polydipsia, tired all the time, cold intolerance, excessive sweating, flushing or heat intolerance Carlos Enrique/Lymph: Denies: easy bruising or easy bleeding All/Imm: Denies: tongue swelling, facial swelling or acute wheezing Medications/Allergies Home Medications Medication Instructions Recorded Confirmed Last Taken Type acetaminophen 300 mg-codeine 30 mg 1 tab PO Q6H PRN Pain 04/15/22 06/22/23 Unknown History tablet aspirin 81 mg tablet,delayed 81 mg PO DAILY #30 tabs 04/15/22 06/22/23 06/22/23 Rx release atorvastatin 40 mg tablet 40 mg PO BEDTIME #30 tabs 04/15/22 06/22/23 06/21/23 Rx cholecalciferol (vitamin D3) 25 25 mcg PO QAM 04/15/22 06/22/23 Unknown History mcg (1,000 unit) tablet (Vitamin D3) meloxicam 7.5 mg tablet 7.5 mg PO DAILY 04/15/22 06/22/23 06/22/23 History metoprolol tartrate 25 mg tablet 25 mg PO BID 04/15/22 06/22/23 06/22/23 History vitamin B complex (B 1 tab PO DAILY #30 tabs 04/15/22 06/22/23 Unknown Rx Complex-Vitamin B12 tablet) furosemide 20 mg tablet 20 mg PO DAILY 06/22/23 06/22/23 06/22/23 History lisinopril 40 mg tablet 40 mg PO DAILY 06/22/23 06/22/23 06/22/23 History Allergies Allergy/AdvReac Type Severity Reaction Status Date / Time No Known Allergies Allergy Verified 04/15/22 07:28 PFSH Acute PFSH: Medical History Brain TIA CAD (coronary artery disease) COPD (chronic obstructive pulmonary disease) Hypertension Surgical History History of coronary artery stent placement Family History Mother Chronic kidney disease (CKD) Father Congestive heart failure Social History Smoking and tobacco/nicotine status: current every day tobacco/nicotine user Vitals/I&O/Wt Last Vital Signs Temp 97.8 F 06/22/23 13:54 Pulse 80 06/22/23 15:14 Resp 16 06/22/23 15:14 BP 161/73 06/22/23 15:14 Pulse Ox 96 06/22/23 15:14 O2 Del Method Room Air 06/22/23 15:14 Weight last 48 hrs Weight 70.307 kg Physical Exam Narrative: General: No acute distress, AO x3, agitated, not cooperating with interview HEENT: PERRLA, pupils bilaterally equal and reactive Chest: Normal vesicular breath sounds, no added sounds, equal good air entry bilaterally CVS: S1-S2 regular, no murmurs, no tachycardia, no gallops, no rubs Abdomen: Soft, nontender, no organomegaly, bowel sounds present Neuro: No focal deficits, no facial deformity, AO x3, power 5/5 in all limbs Data 06/23/23 00:54 06/23/23 00:54 Other Labs: Laboratory Results WBC 8.47 10^3/uL (3.29-11.43) 06/22/23 14:00 RBC 4.94 10^6/uL (3.85-5.65) 06/22/23 14:00 Hgb 16.20 g/dL (11.27-16.99) 06/22/23 14:00 Hct 48.8 % (36-47) H 06/22/23 14:00 MCV 98.8 fl (85-98) H 06/22/23 14:00 MCH 32.8 pg (27-33) 06/22/23 14:00 MCHC 33.2 g/dL (30-55) 06/22/23 14:00 RDW 13.4 % (12.1-15.1) 06/22/23 14:00 Plt Count 186 10^3/cmm (157-399) 06/22/23 14:00 MPV 10.7 fL (7.4-10.4) H 06/22/23 14:00 Neut % (Auto) 54.3 % 06/22/23 14:00 Lymph % (Auto) 34.6 % 06/22/23 14:00 Kendall % (Auto) 7.3 % 06/22/23 14:00 Eos % (Auto) 2.5 % 06/22/23 14:00 Baso % (Auto) 0.9 % 06/22/23 14:00 Neut # (Auto) 4.60 10^3/uL (1.8-7.7) 06/22/23 14:00 Lymph # (Auto) 2.9 10^3/uL (0.8-4.8) 06/22/23 14:00 Kendall # (Auto) 0.6 10^3/uL (0.2-0.9) 06/22/23 14:00 Eos # (Auto) 0.2 10^3/uL (0.0-0.8) 06/22/23 14:00 Baso # (Auto) 0.1 10^3/uL (0.0-0.1) 06/22/23 14:00 Nucleated RBC % (auto) 0 % 06/22/23 14:00 Nucleated RBCs # 0.0 /100WBC 06/22/23 14:00 Sodium 139 mmol/L (136-145) 06/22/23 14:00 Potassium 4.2 mmol/L (3.5-5.1) 06/22/23 14:00 Chloride 102 mmol/L (98-107) 06/22/23 14:00 Carbon Dioxide 27 mmol/L (22-29) 06/22/23 14:00 Anion Gap 14.2 (5-19) 06/22/23 14:00 BUN 14 mg/dL (8-23) 06/22/23 14:00 Creatinine 1.0 mg/dL (0.5-0.9) H 06/22/23 14:00 GFR Calculation Not Reportable 06/22/23 14:00 Glucose 81 mg/dL (65-115) 06/22/23 14:00 Calculated Osmolality 288 mOsm/kg (285-295) 06/22/23 14:00 Calcium 9.7 mg/dL (8.5-10.5) 06/22/23 14:00 CT Head: Radiologist's impression: IMPRESSION: 1.? No evidence of intracranial hemorrhage or mass effect. 2.? Moderate to advanced small vessel changes with moderate parenchymal volume loss. 3.? Intracranial vascular calcification. 4.? Chronic lacunar infarcts in the RIGHT greater than LEFT basal ganglia. 5.? No acute intracranial findings. A&P Assessment and plan (1) Hypertensive urgency: Presented with the systolic blood pressure of 244 which was treated down to 166 systolics. In the ER received amlodipine 10 mg, hydralazine 20 mg one-time, Vasotec 1.25 mg IV one-time. Goal blood pressure 25% of the presenting blood pressure which would be 180 systolics. For now restart home antihypertensives including lisinopril 40 mg daily, metoprolol 25 mg twice daily. Will uptitrate as per goal blood pressures. Check urine drug screen. Last echocardiogram showed an EF of 55 to 60% without regional wall motion normality, basal septal hypertrophy, moderate aortic regurgitation. (2) Generalized weakness: Most likely in setting of relative hypotension in setting of fast overcorrection of hypertensive urgency. CT head negative for any acute stroke. Echocardiogram in past did show basal septal hypertrophy without significant hemodynamic. Normal saline at 75 cc/h for 1 bag. Check TSH, vitamin B12, folate levels. Physical therapy evaluation. (3) Hypertension: Goals as above. Plan History of TIA: Continue with home medication of aspirin, statin. Recheck lipid panel. CODE STATUS: Full code Regular diet Heparin 5000 every 12 hourly for DVT prophylaxis Protonix for PUD prophylaxis Attestations Medical Necessity Statement*: Admission for more than 2 midnights for management of hypertensive urgency, generalized weakness with symptoms consistent with relative hypotension after overcorrection of high blood pressures Diagnoses Hypertensive urgency I16.0 Generalized weakness R53.1 Hypertension I10
[2023-06-22 18:45] LABS: Troponin(5th) Baseline 11 ng/L (0-10)
[2023-06-22 18:58] LABS: Thyroid Stimulating Hormone 0.79 uIU/mL (0.27-4.20)
[2023-06-22 19:04] LABS: Vitamin B12 328 pg/mL (232-1245)
[2023-06-22 20:08] VITALS: BP 142/80; PULSE 106; RESP 22; TEMP 36.7; O2SAT 92
[2023-06-22 20:46] LABS: Troponin 5 2HR 13.01 ng/L (0-10)
[2023-06-22 20:48] LABS: Troponin 5 2HR Delta 2.01 ABS# (0-10)
[2023-06-22] MEDS: metoprolol tartrate 25 mg Tablet PO (21:39)
[2023-06-22] MEDS: sodium chloride 0.9% 1,000 ML 75 ML IV (21:40)
[2023-06-22] MEDS: atorvastatin 40 mg Tablet PO (21:43)
[2023-06-22 22:00] VITALS: PULSE 102
[2023-06-22 22:33] VITALS: O2SAT 96
[2023-06-22 22:45] VITALS: PULSE 90; RESP 17; O2SAT 97
[2023-06-23] VITALS (15 sets, daily range): BP systolic 112–193; BP diastolic 66–115; PULSE 61–90; RESP 15–25; TEMP 36.6–36.9; O2SAT 91–98; BMI 26.6
--- NOTE | 2023-06-23 00:12 | ECG_ITS ---
[facility] Test Date: 2023-06-23 Pat Name: Yolis Patel Department: Room: 111 Gender: Female Guest Service Supervisor: : 1940 Requested By: Prashant Greenwood Order Number: [id number] Refugio MD: Marietta Lyons M.D. Measurements Intervals [place] Rate: 75 P: 102 MD: 105 QRS: -1 QRSD: 73 T: 138 QT: 364 QTc: 407 Interpretive Statements SINUS RHYTHM WITH SHORT MD INTERVAL NONSPECIFIC ST & T-WAVE ABNORMALITY Compared to ECG 06/22/2023 14:29:40 Short MD interval now present Sinus bradycardia no longer present T-wave abnormality still present Electronically Signed On 06-23-2023 1:38:42 CDT by Marietta Lyons M.D. [id number]
[2023-06-23 01:03] LABS: Basophils # 0.1 10^3/uL (0.0-0.1); Basophils % 0.7 %; Eosinophils # 0.3 10^3/uL (0.0-0.8); Eosinophils % 2.5 %; Hematocrit 45.9 % (36-47); Lymphocytes # 3.1 10^3/uL (0.8-4.8); Mean Corpuscular HGB Conc 33.6 g/dL (30-55); Mean Corpuscular Hemoglobin 32.4 pg (27-33); Mean Corpuscular Volume 96.6 fl (85-98); Mean Platelet Volume 10.8 fL (7.4-10.4); Monocytes # 0.6 10^3/uL (0.2-0.9); Monocytes % 5.8 %; Neutrophils # 6.23 10^3/uL (1.8-7.7); Neutrophils % 60.6 %; Nucleated Red Blood Cells % 0 %; Platelet Count 176 10^3/cmm (157-399); Red Blood Count 4.75 10^6/uL (3.85-5.65); Red Cell Distribution Width 13.3 % (12.1-15.1); White Blood Count 10.29 10^3/uL (3.29-11.43)
[2023-06-23 01:14] LABS: Estmated Average Glucose 117; Hemoglobin A1C 5.7 % (4.0-6.0)
[2023-06-23 01:24] LABS: Alanine Aminotransferase 14 U/L (0-33); Albumin Level 3.5 g/dL (3.5-5.2); Alkaline Phosphatase 75 U/L (35-105); Anion Gap 13.5 (5-19); Aspartate Amino Transferase 14 U/L (0-32); Blood Urea Nitrogen 15 mg/dL (8-23); Calcium 9.1 mg/dL (8.5-10.5); Carbon Dioxide 25 mmol/L (22-29); Chloride 105 mmol/L (98-107); Globulin 3.2 g/dL (1.3-4.6); Glucose 101 mg/dL (65-115); Magnesium 2.1 mg/dL (1.7-2.3); Osmolality Calculated 291 mOsm/kg (285-295); Phosphorus 3.7 mg/dL (2.5-4.5); Potassium 3.5 mmol/L (3.5-5.1); Sodium 140 mmol/L (136-145); Total Bilirubin 0.6 mg/dL (0.15-1.2); Total Protein 6.7 g/dL (6.6-8.7)
[2023-06-23 01:25] LABS: Chol HDL Ratio 3.33 mg/dL (0.0-4.40); Cholesterol 110 mg/dL (0-200); HDL Cholesterol 33 mg/dL (60-100); LDL Cholesterol Calculated 50 mg/dL (50-129); Triglycerides 136 mg/dL (0-150); VLDL Cholestrol Calculation 27 mg/dL (0-30)
[2023-06-23 01:39] LABS: Folate Level 11.3 ng/mL (4.8-37.3)
[2023-06-23] MEDS: metoprolol tartrate 25 mg Tablet PO (08:37)
[2023-06-23] MEDS: lisinopril 20 mg Tablet 40 MG PO (08:38)
[2023-06-23] MEDS: pantoprazole DR 40 mg Tablet PO (08:38)
[2023-06-23] MEDS: aspirin 81 mg EC Tablet PO (08:38)
--- NOTE | 2023-06-23 09:19 | PC.CHAP ---
Pastoral Care Encounter/Spiritual Assessment Type of Contact [] Declined lining cutter visit [] Patient/Family/Request visit [] Outpatient visit [] Follow-up visit [] Physician referral [] Code/Alert [x] Routine visit [] Staff referral [] Actively dying [] Patient sleeping [] Family support [] [] Out of room [] Palliative care [] [] Receiving care in room [] Pre-surgical visit [] Trauma [] Long length of stay [] ICU visit [] Other: Relational/Emotional Strength [x] Patient feels connected with others/family/visitors/staff [] Distress [] Loneliness/isolation [] Abandonment Spirituality of Patient x[] Person of Nuha [] Attends Gnosticism of their Nuha [x] Believes in Prayer [] Reads Bible or Orthodoxy materials [] There are Spiritual issues to be addressed 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 [x] Prayer [] Active listening [x] Non-anxious presence [] Spiritual/emotional support [] Crisis/trauma care [] Spiritual counseling [] Bereavement support [] Provided bereavement packet [] Provided Bible/devotional materials [] Provided toy/stuffed animal, coloring book to patient or family member [] Provided Communion [] Anointing/[place] [] Salvation [x] Completed spiritual assessment [] Other: Impact on Illness or Injury [] Angry [] Fearful [] Anxious [] Often cries [] Exhaustion [] Unable to work [] Unable to attend jehovah's witness [] Unable to walk/stand [] Unable to read [] Unable to drive [] Unable to eat/drink [] Unable to sleep [] Unable to be with family [] Patient intubated [] Other: Summary Time spent with patient 5 min
[2023-06-23] MEDS: amlodipine 10 mg Tablet PO (12:02)
--- NOTE | 2023-06-23 13:53 | PM.PN ---
Subjective Subjective: Today morning on examination patient is a lot more pleasant. She is in a happier mood. She wants to talk further about her health. She states she has been struggling with maintaining her blood pressure because of high fluctuations for last 3 to 4 weeks which has been bothering her quite a bit. Highest blood pressure she has seen is more than 220 and the lowest she has seen is 130. As per her the blood pressure fluctuates within few hours. Multiple medications have been changed at home. She states she is compliant with medications. She wants to stay for further adjustment of medications and is agreeable to further management. Currently she denies of any nausea, vomiting, headache. States she is hungry. Not feeling cold anymore. Blood pressure charted appreciated. Currently 185 systolics. Heart rate running in 60s. Blood work appreciated for a stable disease and CMP. Vitals/I&O/Wt Last Vital Signs Temp 98.0 F 06/23/23 04:00 Pulse 61 06/23/23 11:35 Resp 20 H 06/23/23 11:35 BP 193/81 06/23/23 11:35 Pulse Ox 92 06/23/23 11:35 O2 Del Method Room Air 06/23/23 11:35 06/22/23 06/23/23 06/23/23 22:59 06:59 14:59 Intake Total 1860 / 1860 Balance 1860 / 1860 Weight last 48 hrs Weight 57.924 kg Weight 57.924 kg Weight 56.88 kg Weight 70.307 kg Physical Exam Narrative: General: No acute distress, AO x3, agitated, not cooperating with interview HEENT: PERRLA, pupils bilaterally equal and reactive Chest: Normal vesicular breath sounds, no added sounds, equal good air entry bilaterally CVS: S1-S2 regular, no murmurs, no tachycardia, no gallops, no rubs Abdomen: Soft, nontender, no organomegaly, bowel sounds present Neuro: No focal deficits, no facial deformity, AO x3, power 5/5 in all limbs Data 06/23/23 00:54 06/23/23 00:54 A&P Assessment and plan (1) Hypertensive urgency: Presented with the systolic blood pressure of 244 which was treated down to 166 systolics. In the ER received amlodipine 10 mg, hydralazine 20 mg one-time, Vasotec 1.25 mg IV one-time. Goal blood pressure 25% of the presenting blood pressure which would be 180 systolics. Continue with home dose of lisinopril, switch metoprolol to Coreg 6.25 mg twice daily, add amlodipine 10 mg daily.. Will uptitrate as per goal blood pressures. Continue to monitor blood pressures after 2 hours of giving new medications. If needed will add hydrochlorothiazide versus chlorthalidone keeping goals in mind. Last echocardiogram showed an EF of 55 to 60% without regional wall motion normality, basal septal hypertrophy, moderate aortic regurgitation. (2) Generalized weakness: Improving. Most likely in setting of relative hypotension in setting of fast overcorrection of hypertensive urgency. CT head negative for any acute stroke. Echocardiogram in past did show basal septal hypertrophy without significant hemodynamic. Patient eating okay. Stop IV fluids. Appreciate TSH, vitamin B12, folate levels. Awaiting physical therapy evaluation. (3) Hypertension: Goals as above. Plan History of TIA: Continue with home medication of aspirin, statin. Appreciate lipid panel. CODE STATUS: Full code Regular diet Heparin 5000 every 12 hourly for DVT prophylaxis Protonix for PUD prophylaxis Attestations Medical Necessity Statement*: Requires further hospitalization for management of hypertensive urgency while oral antihypertensives were adjusted, generalized weakness awaiting physical therapy evaluation and safe discharge planning. Diagnoses Hypertensive urgency I16.0 Generalized weakness R53.1 Hypertension I10
[2023-06-23] MEDS: chlorthalidone 25 mg Tablet 12.5 MG PO (14:32)
--- NOTE | 2023-06-23 15:01 | PC.SOCIAL ---
IMM Update pg 2 of IMM not updated @ this time as patient is currently in observation status.
[2023-06-23] MEDS: carvedilol 6.25 mg Tablet PO (17:32)
--- NOTE | 2023-06-23 19:34 | PC.PT ---
Addendum entered by Nitin Rodas 06/23/23 19:38: No more attempts at physical therapy evaluation to be made, unless new orders received, and patient agreeable to participate with physical therapy evaluation, after discussion with prescribing physician. Original Note: Attempted PT evaluation 3 times today, on first occasion, patient stated she wanted to take nap, on next 2 attempts, patient viewed therapist and rolled over to act as though she was sleeping. Patient has received prior physical therapy here and at rehab setting, and on first attempt stated she did not need anything. Nursing reports patient to be independent with transfers and ambulation with small-based quad cane to from bathroom for toileting multiple times today, no more attempts to be made, unless new orders are received.
[2023-06-23] MEDS: atorvastatin 40 mg Tablet PO (21:11)
[2023-06-23 21:31] LABS: Add Urine Microscopic? YES; Bilirubin Urine Neg (Negative); Blood Urine Neg (Negative); Glucose Urine UA Norm (Normal); Ketones Urine Negative (Negative); Leukocyte Esterase Urine 1+ (Negative); Nitrate Urine Negative (Negative); Protein Urine Neg (Negative); Squamous Epithelial Cell Urine 0-4 /hpf (0-5); Urine Appearance Clear (CLEAR); Urine Color Yellow (Yellow); Urobilinogen Urine Neg (Negative); WBC Urine RARE /hpf (0-5); pH Urine 7 (5-7)
[2023-06-23 21:32] LABS: Add Urine Culture? No; Bacteria Urine TRACE /hpf
[2023-06-24 02:29] LABS: Basophils # 0.1 10^3/uL (0.0-0.1); Basophils % 0.9 %; Eosinophils # 0.3 10^3/uL (0.0-0.8); Eosinophils % 3.1 %; Hematocrit 45.5 % (36-47); Lymphocytes # 3.2 10^3/uL (0.8-4.8); Lymphocytes % 36.6 %; Mean Corpuscular HGB Conc 33.2 g/dL (30-55); Mean Corpuscular Hemoglobin 32.3 pg (27-33); Mean Corpuscular Volume 97.4 fl (85-98); Mean Platelet Volume 10.7 fL (7.4-10.4); Monocytes # 0.6 10^3/uL (0.2-0.9); Monocytes % 6.4 %; Neutrophils # 4.59 10^3/uL (1.8-7.7); Neutrophils % 52.8 %; Nucleated Red Blood Cells % 0 %; Platelet Count 178 10^3/cmm (157-399); Red Blood Count 4.67 10^6/uL (3.85-5.65); Red Cell Distribution Width 13.4 % (12.1-15.1)
[2023-06-24 02:55] LABS: Alanine Aminotransferase 14 U/L (0-33); Albumin Level 3.6 g/dL (3.5-5.2); Alkaline Phosphatase 73 U/L (35-105); Anion Gap 12.6 (5-19); Aspartate Amino Transferase 14 U/L (0-32); Blood Urea Nitrogen 20 mg/dL (8-23); Calcium 9.1 mg/dL (8.5-10.5); Carbon Dioxide 23 mmol/L (22-29); Chloride 105 mmol/L (98-107); Globulin 3.1 g/dL (1.3-4.6); Glucose 115 mg/dL (65-115); Osmolality Calculated 288 mOsm/kg (285-295); Potassium 3.6 mmol/L (3.5-5.1); Sodium 137 mmol/L (136-145); Total Bilirubin 0.6 mg/dL (0.15-1.2); Total Protein 6.7 g/dL (6.6-8.7)
[2023-06-24 03:30] VITALS: BP 151/77; PULSE 77; RESP 18; TEMP 36.7; O2SAT 92
[2023-06-24 05:09] VITALS: PULSE 83
[2023-06-24 07:36] VITALS: BP 155/86; PULSE 90; RESP 19; TEMP 36.6; O2SAT 93
[2023-06-24 08:10] VITALS: PULSE 90; RESP 18; O2SAT 93
[2023-06-24] MEDS: carvedilol 6.25 mg Tablet PO (09:08)
[2023-06-24] MEDS: aspirin 81 mg EC Tablet PO (09:08)
[2023-06-24] MEDS: amlodipine 10 mg Tablet PO (09:08)
[2023-06-24] MEDS: pantoprazole DR 40 mg Tablet PO (09:08)
[2023-06-24] MEDS: lisinopril 20 mg Tablet 40 MG PO (09:08)
[2023-06-24] MEDS: chlorthalidone 25 mg Tablet 12.5 MG PO (09:09)
[2023-06-24 10:00] VITALS: BMI 27.6
--- NOTE | 2023-06-24 11:10 | P.DS_ITS ---
Discharge Providers Date of Admission: 06/22/23 17:18 Date of Discharge: June 24, 2023 Attending Provider at Admission: Prashant Greenwood MD Attending Provider at Discharge: Prashant Greenwood MD Primary Care Provider: SHAE Brennan Diagnoses at Discharge Discharge Diagnosis (1) Hypertensive urgency: Status: Acute (2) Generalized weakness: Status: Acute (3) Hypertension: Status: Acute (4) Anxiety: Status: Acute Reason for Visit Reason for Visit: hypertension Brief History: History as per HPI: Yolis Patel is a 82 year old female with past medical history of TIA, CAD, Hypertension presented to the ER because of high blood pressure.? Seen with daughter at bedside.? Patient was not removed to talk much today because she was bothered by cold room and was hungry.? Even after multiple tries patient was not able to talk and discussed with her about her health. As per her daughter she has been dealing with fluctuating blood pressures for last 3 weeks for which her home medications are being adjusted by her primary care provider.? Today when she checked her blood pressure at home and was found to be more than 240 so she presented to the ER. In the ER she was given Vasotec, IV hydralazine and 10 of amlodipine after which her blood pressure dropped from 245 systolic to 160 systolic after which patient became significantly weak, diaphoretic and dizzy hence hospitalist service was consulted. Currently patient was seen going back from bedside commode to bed, she was steady on her feet but required help in getting in bed, feeling cold, awake and alert, slightly angry with blood pressure of 170 systolic and heart rate of 95 bpm. Hospital Course Hospital Course Patient was admitted to the hospital further evaluation and management of hypertensive urgency and symptomatic relative hypotension because of fast correction. Stroke was ruled out with negative CT head. During hospitalization patient's multiple antihypertensives were changed and her blood pressure responded better. Patient continued to remain anxious during hospitalization for which she was started on Xanax as needed. She has been discharged in hemodynamically stable condition on adjusted antihypertensives. She is to take lisinopril 40 mg daily, Coreg 6.25 mg twice daily, amlodipine 10 mg daily and chlorthalidone 12.5 mg daily. She is to check her blood pressures daily at home and maintain a blood pressure diary and follow-up with a primary care provider in 2 weeks for further adjustment of medications if needed. She has been told goal blood pressure for now for next few weeks is going to be less than 160/90 and after that it should be 140/90. Higher goal currently is in setting of chronic hypertensive urgency leading to relative hypotension on normal blood pressures. Patient continued to complain of anxiety during hospitalization for which she has been discharged on oral paroxetine low-dose along with Xanax 0.125 mg twice daily as needed. Discharge plan was discussed in detail with the patient and she verbalized understanding. Physical Exam Narrative: General: No acute distress, AO x3, anxious HEENT: PERRLA, pupils bilaterally equal and reactive Chest: Normal vesicular breath sounds, no added sounds, equal good air entry bilaterally CVS: S1-S2 regular, no murmurs, no tachycardia, no gallops, no rubs Abdomen: Soft, nontender, no organomegaly, bowel sounds present Neuro: No focal deficits, no facial deformity, AO x3, power 5/5 in all limbs Discharge Data Studies Completed and Pending Completed Studies During Hospitalization Category Date Time Status CT head wo con* [id number] Stat Cat Scan 06/22/23 15:40 Completed Laboratory Results WBC 8.70 10^3/uL (3.29-11.43) 06/24/23 02:14 RBC 4.67 10^6/uL (3.85-5.65) 06/24/23 02:14 Hgb 15.10 g/dL (11.27-16.99) 06/24/23 02:14 Hct 45.5 % (36-47) 06/24/23 02:14 MCV 97.4 fl (85-98) 06/24/23 02:14 MCH 32.3 pg (27-33) 06/24/23 02:14 MCHC 33.2 g/dL (30-55) 06/24/23 02:14 RDW 13.4 % (12.1-15.1) 06/24/23 02:14 Plt Count 178 10^3/cmm (157-399) 06/24/23 02:14 MPV 10.7 fL (7.4-10.4) H 06/24/23 02:14 Neut % (Auto) 52.8 % 06/24/23 02:14 Lymph % (Auto) 36.6 % 06/24/23 02:14 [place] % (Auto) 6.4 % 06/24/23 02:14 Eos % (Auto) 3.1 % 06/24/23 02:14 Baso % (Auto) 0.9 % 06/24/23 02:14 Neut # (Auto) 4.59 10^3/uL (1.8-7.7) 06/24/23 02:14 Lymph # (Auto) 3.2 10^3/uL (0.8-4.8) 06/24/23 02:14 [place] # (Auto) 0.6 10^3/uL (0.2-0.9) 06/24/23 02:14 Eos # (Auto) 0.3 10^3/uL (0.0-0.8) 06/24/23 02:14 Baso # (Auto) 0.1 10^3/uL (0.0-0.1) 06/24/23 02:14 Nucleated RBC % (auto) 0 % 06/24/23 02:14 Nucleated RBCs # 0.0 /100WBC 06/24/23 02:14 Sodium 137 mmol/L (136-145) 06/24/23 02:14 Potassium 3.6 mmol/L (3.5-5.1) 06/24/23 02:14 Chloride 105 mmol/L (98-107) 06/24/23 02:14 Carbon Dioxide 23 mmol/L (22-29) 06/24/23 02:14 Anion Gap 12.6 (5-19) 06/24/23 02:14 BUN 20 mg/dL (8-23) 06/24/23 02:14 Creatinine 1.0 mg/dL (0.5-0.9) H 06/24/23 02:14 GFR Calculation Not Reportable 06/24/23 02:14 Glucose 115 mg/dL (65-115) 06/24/23 02:14 Estimat Average Glucose 117 06/23/23 00:54 Hemoglobin A1c 5.7 % (4.0-6.0) 06/23/23 00:54 Calculated Osmolality 288 mOsm/kg (285-295) 06/24/23 02:14 Calcium 9.1 mg/dL (8.5-10.5) 06/24/23 02:14 Phosphorus 3.7 mg/dL (2.5-4.5) 06/23/23 00:54 Magnesium 2.1 mg/dL (1.7-2.3) 06/23/23 00:54 Total Bilirubin 0.6 mg/dL (0.15-1.2) 06/24/23 02:14 AST 14 U/L (0-32) 06/24/23 02:14 ALT 14 U/L (0-33) 06/24/23 02:14 Alkaline Phosphatase 73 U/L (35-105) 06/24/23 02:14 Troponin T Baseline 11 ng/L (0-10) H 06/22/23 18:22 Troponin T 120 Minute 13.01 ng/L (0-10) H 06/22/23 20:22 Delta Troponin T 2.01 ABS# (0-10) 06/22/23 20:22 Troponin T Hi Sens 6Hr 15.80 ng/L (0-10) H 06/23/23 00:54 Troponin T Hi Sens 6Hr Delta 4.80 ng/L (0-12) 06/23/23 00:54 Total Protein 6.7 g/dL (6.6-8.7) 06/24/23 02:14 Albumin 3.6 g/dL (3.5-5.2) 06/24/23 02:14 Globulin 3.1 g/dL (1.3-4.6) 06/24/23 02:14 Triglycerides 136 mg/dL (0-150) 06/23/23 00:54 Cholesterol 110 mg/dL (0-200) 06/23/23 00:54 LDL Cholesterol, Calc 50 mg/dL (50-129) 06/23/23 00:54 Total VLDL Cholesterol 27 mg/dL (0-30) 06/23/23 00:54 HDL Cholesterol 33 mg/dL (60-100) L 06/23/23 00:54 Cholesterol/HDL Ratio 3.33 mg/dL (0.0-4.40) 06/23/23 00:54 Vitamin B12 328 pg/mL (232-1245) 06/22/23 18:22 Folate 11.3 ng/mL (4.8-37.3) 06/23/23 00:54 TSH 0.79 uIU/mL (0.27-4.20) 06/22/23 18:22 Urine Color Yellow (Yellow) 06/23/23 20: Urine Appearance Clear (CLEAR) 06/23/23 20: Urine pH 7 (5-7) 06/23/23 20: Ur Specific [place] 1.010 (1.005-1.030) 06/23/23 20: Urine Protein Neg (Negative) 06/23/23 20: Urine Glucose (UA) Norm (Normal) 06/23/23 20: Urine Ketones Negative (Negative) 06/23/23 20: Urine Blood Neg (Negative) 06/23/23 20: Urine Nitrate Negative (Negative) 06/23/23 20: Urine Bilirubin Neg (Negative) 06/23/23 20: Urine Urobilinogen Neg mg/dL (Negative) 06/23/23 20: Ur Leukocyte Esterase 1+ (Negative) H 06/23/23 20: Urine RBC None /hpf (0-2) 06/23/23 20: Urine WBC Rare /hpf (0-5) 06/23/23 20: Ur Squamous Epith Cells 0-4 /hpf (0-5) H 06/23/23 20: Amorphous Sediment Not Reportable 06/23/23 20: Urine Bacteria Trace /hpf (NONE) 06/23/23 20: Vitals Last Vital Signs Temp 97.9 F 06/24/23 07:36 Pulse 90 06/24/23 08:10 Resp 18 06/24/23 08:10 BP 155/86 06/24/23 07:36 Pulse Ox 93 06/24/23 08:10 O2 Del Method Room Air 06/24/23 08:10 Discharge Plan Discharge Patient Disposition: Home Condition: Stable Prescriptions: New carvedilol 6.25 mg Tablet 6.25 mg PO BID Qty: 60 0RF chlorthalidone 25 mg Tablet 12.5 mg PO DAILY Qty: 30 0RF amlodipine 10 mg Tablet 10 mg PO DAILY Qty: 30 0RF paroxetine HCl 10 mg tablet 10 mg PO DAILY Qty: 30 0RF Xanax 0.25 mg tablet 0.125 mg PO BID PRN (Reason: anxiety) Qty: 20 0RF Continued lisinopril 40 mg tablet 40 mg PO DAILY Discontinued furosemide 20 mg tablet 20 mg PO DAILY No Action acetaminophen-codeine 300-30 mg tablet 1 tab PO Q6H PRN (Reason: Pain) meloxicam 7.5 mg tablet 7.5 mg PO DAILY metoprolol tartrate 25 mg tablet 25 mg PO BID cholecalciferol (vitamin D3) [Vitamin D3] 25 mcg (1,000 unit) Tablet 25 mcg PO QAM atorvastatin 40 mg Tablet 40 mg PO BEDTIME Qty: 30 0RF aspirin 81 mg Tablet,Delayed Release (Dr/Ec) 81 mg PO DAILY Qty: 30 0RF vitamin B complex [B Complex-Vitamin B12] Tablet 1 tab PO DAILY Qty: 30 0RF Discharge Orders: Discharge Order (Routine); Ordered 06/24/23 Ordered By: Prashant Greenwood Referrals: Sandy Hernandez FNP [Primary Care Provider] - 2 weeks (Please call Sandy Hernandez Office on Monday at [phone] to schedule a follow up appointment for 2 weeks. Thank you.) Discharge Diet: Cardiac Discharge Activity: Resume usual activity and Increase activity as tolerated Patient Instructions: Alprazolam (By mouth) (Xanax, Xanax XR, alprazolam Intensol, Gabazolamin), Chlorthalidone (By mouth) (Taliton), Paroxetine (By mouth) (Paxil, Paxil CR, [place], Pexeva), Amlodipine (By mouth) (Hypertenipine-2.5, Norvasc, Norliqva), Carvedilol (By mouth) (Coreg, Coreg CR, Hypertenevide-12.5), Hypertension (DC), Opioid Safety, Pain Management, Weakness (Generalized) Activity Restrictions/Additional Instructions: She is to take lisinopril 40 mg daily, Coreg 6.25 mg twice daily, amlodipine 10 mg daily and chlorthalidone 12.5 mg daily. She is to check her blood pressures daily at home and maintain a blood pressure diary and follow-up with a primary care provider in 2 weeks for further adjustment of medications if needed. She has been told goal blood pressure for now for next few weeks is going to be less than 160/90 and after that it should be 140/90. Higher goal currently is in setting of chronic hypertensive urgency leading to relative hypotension on normal blood pressures. She has been discharged on oral paroxetine low-dose along with Xanax 0.125 mg twice daily as needed. Discharge Attestations Time Spent in Discharge Care*: greater than 30 min Specific Discharge Activities: educating patient, educating and/or supporting family/caregiver, discussing with pcp/other providers, discussing with case briefer/social workers/dc planners, documenting/other paperwork and evaluating patient/reviewing data Status at Discharge: Cognitive status at discharge: cognitively intact , Behavioral status at discharge: cooperative , Functional status at discharge: independent ambulation , Overall status at discharge: patient is back to baseline Quality Metrics Clinical Quality Measures [ No reported AMI, CVA or VTE this stay] Coding Level of Care Code 38610 Total time (in minutes) for Discharge: 55 Diagnoses Hypertensive urgency I16.0 Generalized weakness R53.1 Hypertension I10 Anxiety F41.9
[2023-06-24 11:41] VITALS: PULSE 90; RESP 18; O2SAT 93
[2023-06-24 11:42] VITALS: BP 133/74; PULSE 101; RESP 19; O2SAT 93
== END 2023-06-24 12:16 | disposition home or self-care (01) ==
LOC: ER 15:14 → CSU 17:37
PROVIDERS: Admitting Provider Student in an Organized Health Care Education/Training Program; Emergency Provider Family Medicine; PCP Nurse Practitioner Family; Visit Provider Student in an Organized Health Care Education/Training Program
DX: I16.0 Hypertensive urgency (principal); R53.1 Weakness; F41.9 Anxiety disorder, unspecified; I25.10 Atherosclerotic heart disease of native coronary artery without angina pectoris; Z79.82 Long term (current) use of aspirin; J44.9 Chronic obstructive pulmonary disease, unspecified; Z86.73 Personal history of transient ischemic attack (TIA), and cerebral infarction without residual deficits; Z95.5 Presence of coronary angioplasty implant and graft; F17.210 Nicotine dependence, cigarettes, uncomplicated
CPT/HCPCS: 36415; 70450; 80048; 80053; 80061; 81001; 81015; 82607; 82746; 83036; 83735; 84100; 84443; 84484; 85025; 93005; 94664; 96361; 96374; 96376; 97116; 97161; 99285; G0378; J0360; J7030

== ENCOUNTER 2023-06-27 17:42 | Emergency (ER) | payer MEDICARE, SELFPAY ==
[2023-06-27 17:49] VITALS: BP 137/74; PULSE 72; RESP 16; TEMP 36.7; O2SAT 94; BMI 31.3
--- NOTE | 2023-06-27 17:53 | ECG_ITS ---
[facility] Test Date: 2023-06-27 Pat Name: Yolis Patel Department: Room: Gender: Female Overlock Hemmer: : 1940 Requested By: Juan Clifford Order Number: [id number] Refugio MD: Mickey Monson M.D. Measurements Intervals [place] Rate: 66 P: 33 PA: 159 QRS: -12 QRSD: 79 T: 117 QT: 390 QTc: 409 Interpretive Statements SINUS RHYTHM MINIMAL VOLTAGE CRITERIA FOR LVH, CONSIDER NORMAL VARIANT [MEETS CRITERIA IN ONE OF: R(aVL), S(V1), R(V5), R(V5/V6)+S(V1)] MODERATE T-WAVE ABNORMALITY, CONSIDER LATERAL ISCHEMIA [-0.1+ mV T-WAVE IN I/aVL/V5/V6] Compared to ECG 06/23/2023 00:12:37 Possible ischemia now present Short PA interval no longer present T-wave abnormality still present Electronically Signed On 06-28-2023 8:02:16 CDT by Mickey Monson M.D. [email or web address]
[2023-06-27 18:04] VITALS: BP 145/68; PULSE 68; O2SAT 94
--- NOTE | 2023-06-27 18:08 | W.ED.GENADLT ---
HPI - General Adult General: Chief complaint: General Medical Stated complaint: low bp Time Seen by Provider: 06/27/23 17:53 History of Present Illness: Patient presents to the ER with complaints of hypotension. Patient was recently released from this hospital approximately 3 days ago on 3 new medicines her blood pressure. She was at inpatient for hypertension. Patient brings her home blood pressure log which shows she is consistently about 105/50 and feels fatigued and tired all the time. Patient was recently started on carvedilol 6.25 mg twice daily chlorthalidone 12.5 mg daily amlodipine 10 mg daily paroxetine 10 mg daily Xanax 0.125 mg twice daily Review of Systems General: Reports: 10 or more systems reviewed and unremarkable except in HPI and below PFSH ED PFSH: Medical History Brain TIA CAD (coronary artery disease) COPD (chronic obstructive pulmonary disease) Hypertension Tobacco use Surgical History History of coronary artery stent placement Family History Mother Chronic kidney disease (CKD) Father Congestive heart failure Social History Smoking and tobacco/nicotine status: current every day tobacco/nicotine user Physical Exam Const: COMMON NORMALS: no acute distress, average body habitus, patient oriented x3, no limitations, healthy appearing, alert and well nourished HENMT: COMMON NORMALS: normocephalic, atraumatic, hearing grossly normal bilaterally, external ears normal, Normal external nose present, moist oral mucous membranes and oropharynx normal HEAD & SCALP: normocephalic and atraumatic NOSE: Normal external nose present EXTERNAL EAR: Yes external ears normal Eye: COMMON NORMALS: Equal, round and reactive pupils present, EOMs intact bilaterally, conjunctivae normal and no scleral icterus CONJUNCTIVA: Yes conjunctivae normal PUPIL: Yes Equal, round and reactive pupils present Neck/C-Spine: COMMON NORMALS: full ROM, no lymphadenopathy, supple, no meningeal signs, no JVD and Thyroid normal THYROID: Thyroid normal Chest: COMMONS NORMALS: normal inspection of the chest and normal palpation of entire chest wall Resp: COMMON NORMALS: normal respiratory effort, No retractions, No use of accessory muscles and clear to auscultation bilaterally AUSCULTATION: clear to auscultation bilaterally Cardio: COMMON NORMALS: no JVD, regular rate, regular rhythm, S1 normal heart sound present, S2 normal heart sound present, No gallops present (Cardio), No clicks present (Cardio), No murmurs present (Cardio) and No rub (Cardio) RATE: regular rate RHYTHM: regular rhythm HEART SOUNDS: S1 normal heart sound present and S2 normal heart sound present GI: COMMON NORMALS: Normal to inspection, nondistended, normoactive bowel sounds present, Soft to palpation, non-tender, No hepatosplenomegaly present and no masses PALPATION: Yes Soft to palpation and Yes No hepatosplenomegaly present : COMMON NORMALS: Yes no CVA tenderness BLADDER/KIDNEY EXAM: Yes no CVA tenderness Back/Pelvis: COMMON NORMALS: no CVA tenderness Neuro: COMMON NORMALS: patient oriented x3 SENSORIUM/ORIENTATION: Yes alert MENINGEAL SIGNS: Yes no meningeal signs Course Vital Signs: Vital signs: Vital Signs Temperature 98.1 F 06/27/23 17:49 Pulse Rate 68 06/27/23 18:04 Respiratory Rate 16 06/27/23 17:49 Blood Pressure 145/68 06/27/23 18:04 Pulse Oximetry 94 06/27/23 18:04 Oxygen Delivery Me thod Room Air 06/27/23 18:04 [facility] - General Adult Medical Decision Making . Patient's blood pressure been stable entire time spent here with her blood pressure in 130s 140s. However patient's log at home consistently read around 105. Patient was recently started on 3 blood pressure medicines at her last hospital stay. Lab work and EKG was benign I will discharge patient home and DC her amlodipine. Patient is to keep continuous blood pressure logs and take them to her family practice doctor within the next week for further evaluation and treatment. Differential Diagnosis Hypotension secondary to medication Medical Records I reviewed the patient's medical records. Lab Data I reviewed the patient's lab results. 06/27/23 18:42 06/27/23 18:42 Laboratory Results WBC 7.52 10^3/uL (3.29-11.43) 06/27/23 18:42 RBC 4.68 10^6/uL (3.85-5.65) 06/27/23 18:42 Hgb 15.40 g/dL (11.27-16.99) 06/27/23 18:42 Hct 45.9 % (36-47) 06/27/23 18:42 MCV 98.1 fl (85-98) H 06/27/23 18:42 MCH 32.9 pg (27-33) 06/27/23 18:42 MCHC 33.6 g/dL (30-55) 06/27/23 18:42 RDW 13.2 % (12.1-15.1) 06/27/23 18:42 Plt Count 181 10^3/cmm (157-399) 06/27/23 18:42 MPV 10.7 fL (7.4-10.4) H 06/27/23 18:42 Neut % (Auto) 53.1 % 06/27/23 18:42 Lymph % (Auto) 34.6 % 06/27/23 18:42 [place] % (Auto) 8.1 % 06/27/23 18:42 Eos % (Auto) 2.7 % 06/27/23 18:42 Baso % (Auto) 1.2 % 06/27/23 18:42 Neut # (Auto) 4.00 10^3/uL (1.8-7.7) 06/27/23 18:42 Lymph # (Auto) 2.6 10^3/uL (0.8-4.8) 06/27/23 18:42 [place] # (Auto) 0.6 10^3/uL (0.2-0.9) 06/27/23 18:42 Eos # (Auto) 0.2 10^3/uL (0.0-0.8) 06/27/23 18:42 Baso # (Auto) 0.1 10^3/uL (0.0-0.1) 06/27/23 18:42 Nucleated RBC % (auto) 0 % 06/27/23 18:42 Nucleated RBCs # 0.0 /100WBC 06/27/23 18:42 Sodium 139 mmol/L (136-145) 06/27/23 18:42 Potassium 4.2 mmol/L (3.5-5.1) 06/27/23 18:42 Chloride 102 mmol/L (98-107) 06/27/23 18:42 Carbon Dioxide 27 mmol/L (22-29) 06/27/23 18:42 Anion Gap 14.2 (5-19) 06/27/23 18:42 GFR Calculation Not Reportable 06/27/23 18:42 Glucose 103 mg/dL (65-115) 06/27/23 18:42 Calculated Osmolality 293 mOsm/kg (285-295) 06/27/23 18:42 Calcium 9.7 mg/dL (8.5-10.5) 06/27/23 18:42 No radiology studies performed this visit EKG Data EKG 1: I personally reviewed and interpreted this EKG as follows: EKG interpretation date: 06/27/23 EKG interpretation time: 19:07 Prior EKG tracings: not available for review Interpretation: EKG showed ventricular rate 66 bpm OK interval 159, QRS duration 79, QTc 403, sinus rhythm, Discharge Plan Discharge Patient Disposition: Home Clinical Impression: Drug-induced hypotension Condition: Stable Prescriptions: Continued acetaminophen-codeine 300-30 mg tablet 1 tab PO Q6H PRN (Reason: Pain) meloxicam 7.5 mg tablet 7.5 mg PO DAILY metoprolol tartrate 25 mg tablet 25 mg PO BID cholecalciferol (vitamin D3) [Vitamin D3] 25 mcg (1,000 unit) Tablet 25 mcg PO QAM atorvastatin 40 mg Tablet 40 mg PO BEDTIME Qty: 30 0RF aspirin 81 mg Tablet,Delayed Release (Dr/Ec) 81 mg PO DAILY Qty: 30 0RF vitamin B complex [B Complex-Vitamin B12] Tablet 1 tab PO DAILY Qty: 30 0RF lisinopril 40 mg tablet 40 mg PO DAILY carvedilol 6.25 mg Tablet 6.25 mg PO BID Qty: 60 0RF chlorthalidone 25 mg Tablet 12.5 mg PO DAILY Qty: 30 0RF paroxetine HCl 10 mg tablet 10 mg PO DAILY Qty: 30 0RF Xanax 0.25 mg tablet 0.125 mg PO BID PRN (Reason: anxiety) Qty: 20 0RF Discontinued amlodipine 10 mg Tablet 10 mg PO DAILY Qty: 30 0RF Discharge Orders: Discharge ED (Routine); Ordered 06/27/23 Ordered By: Jon Andrade Referrals: Sandy Hernandez FNP [Primary Care Provider] - 1 week Patient Instructions: Hypotension (ED) Activity Restrictions/Additional Instructions: Your lab work and EKG come back benign. I feel your low blood pressure may be due to too much blood pressure medicine. Please stop your amlodipine and continue all your other medicines as directed. Please continue your blood pressure log and take it to your family practice doctors appointment within the next 7 to 10 days. Thank you Coding Level of Care Code ED Process Manager for [address]
[2023-06-27 18:52] LABS: Basophils # 0.1 10^3/uL (0.0-0.1); Basophils % 1.2 %; Eosinophils # 0.2 10^3/uL (0.0-0.8); Eosinophils % 2.7 %; Hematocrit 45.9 % (36-47); Lymphocytes # 2.6 10^3/uL (0.8-4.8); Lymphocytes % 34.6 %; Mean Corpuscular HGB Conc 33.6 g/dL (30-55); Mean Corpuscular Hemoglobin 32.9 pg (27-33); Mean Corpuscular Volume 98.1 fl (85-98); Mean Platelet Volume 10.7 fL (7.4-10.4); Monocytes # 0.6 10^3/uL (0.2-0.9); Monocytes % 8.1 %; Neutrophils % 53.1 %; Nucleated Red Blood Cells % 0 %; Platelet Count 181 10^3/cmm (157-399); Red Blood Count 4.68 10^6/uL (3.85-5.65); Red Cell Distribution Width 13.2 % (12.1-15.1); White Blood Count 7.52 10^3/uL (3.29-11.43)
[2023-06-27 19:22] LABS: Anion Gap 14.2 (5-19); Blood Urea Nitrogen 25 mg/dL (8-23); Calcium 9.7 mg/dL (8.5-10.5); Carbon Dioxide 27 mmol/L (22-29); Chloride 102 mmol/L (98-107); Glucose 103 mg/dL (65-115); Osmolality Calculated 293 mOsm/kg (285-295); Potassium 4.2 mmol/L (3.5-5.1); Sodium 139 mmol/L (136-145)
[2023-06-27 19:30] VITALS: BP 143/78; PULSE 81; O2SAT 100
== END 2023-06-27 19:41 | disposition home or self-care (01) ==
PROVIDERS: Family Medicine; Emergency Provider Emergency Medicine; PCP Nurse Practitioner Family
DX: I95.2 Hypotension due to drugs (principal); I25.10 Atherosclerotic heart disease of native coronary artery without angina pectoris; Z86.73 Personal history of transient ischemic attack (TIA), and cerebral infarction without residual deficits; J44.9 Chronic obstructive pulmonary disease, unspecified; I10 Essential (primary) hypertension; F17.210 Nicotine dependence, cigarettes, uncomplicated; Z79.82 Long term (current) use of aspirin
CPT/HCPCS: 36415; 80048; 85025; 93005; 99284